=== PATIENT | female | born 1980 | race Caucasian/White ===

== ENCOUNTER 2017-01-15 18:39 | Emergency (ER) | payer OTHER ==
[~2017-01-15] VITALS: Ht 152.4 cm; Wt 79.4 kg
[~2017-01-15 18:39] MED LIST: ADVAIR 100-501 EACH INH; ADVAIR 250-501 EACH INH; ALBUTEROL SULF8.5 GM INH; ALBUTEROL2.5 MG/3 M INH; AMITRIPTYLINE H25 MG PO; AMITRIPTYLINE H50 MG PO; AZITHROMYCIN500 MG PO; BACLOFEN10 MG PO; BENADRYL25 MG PO; BUSPIRONE HCL5 MG PO; CYCLOBENZAPRINE10 MG PO; DOXYCYCLINE HY100 MG PO; FIORICET 50-321 EACH PO; FLUOXETINE HCL10 MG PO; GOLYTELY SOLU4000 ML PO; GUAIATUSSIN AC10 ML PO; HYDROCODON-ACE1 EA10 PO; IBUPROFEN200 M1 PO; IBUPROFEN800 MG PO; MACROBID 100 M100 MG PO; METFORMIN; MIRALAX17 GM PO; MONONESSA1 EACH PO; NAPROXEN500 MG PO; NEURONTIN300 MG PO; NORCO 5-325 TA1 EACH PO; NORTREL1 EAC1 PO; OMEPRAZOLE40 MG PO; ONDANSETRON ODT8 MG PO; ORTHO TRI-CYCL1 EACH PO; PERCOCET 5-3251 EACH PO; POLYETHYLENE G255 GM PO; PREDNISONE20 MG PO; PRENATAL CAPLE1 EACH PO; PRILOSEC20 MG PO; PROVENTIL HFA6.7 GM INH; PROZAC PO; PROZAC20 MG PO; PROZAC40 MG PO; SUDAFED 12 HOU120 MG PO; SUDAFED30 MG PO; SUDOGEST60 MG PO; TRAMADOL HCL50 MG PO; TRAZODONE HCL50 MG PO; TYLENOL EXTRA500 MG PO; VENTOLIN HFA18 GM INH; XANAX0.5 MG PO; ZIPSOR25 MG
--- OUTSIDE RECORDS SUMMARY | 2017-01-15 19:06 | XMS ---
Demographics + + + | Address | [address] | | [address] | | | [place] [address] | + + + | Preferred Language | Unknown | + + + | Marital Status | Unknown | + + + | Mormon Affiliation | Unknown | + + + | Race | Unknown | + + + | Ethnic Group | Unknown | + + + Author + + + | Author | [facility] | + + + | Organization | [facility] | + + + | Address | [address] | | | [place] [address] | + + + | Phone | | + + + Care Team Providers + + + + | Care Reproduction Artist Name | Role | Phone | + + + + Unavailable | Unavailable | + + + + PROBLEMS +---------+ + + +--------+ + + | Type | Condition | ICD9-CM | [id number] | Onset | Condition | SNOMED | | | | Code | Code | Dates | Status | Code | +---------+ + + +--------+ + + | Problem | Anxiety | | F41.9 | | Active | 04688178 | +---------+ + + +--------+ + + | Problem | Upper | R10.10 | | | Active | 76968127 | | | abdominal | | | | | | | | pain | | | | | | +---------+ + + +--------+ + + | Problem | Nausea & | | R11.2 | | Active | 14955035 | | | vomiting | | | | | | +---------+ + + +--------+ + + | Problem | Abdominal | | R10.9 | | Active | 86670383 | | | pain | | | | | | +---------+ + + +--------+ + + | Problem | Anxiety | F41.8 | | | Active | 780466412 | | | associated | | | | | | | | with | | | | | | | | depression | | | | | | +---------+ + + +--------+ + + | Problem | Elevated | D72.829 | | | Active | 254051622 | | | white | | | | | | | | blood cell | | | | | | | | count | | | | | | +---------+ + + +--------+ + + | Problem | Frequent | R51 | | | Active | 72340029 | | | headaches | | | | | | +---------+ + + +--------+ + + | Problem | Spine | M54.2 | | | Active | 41878638 | | | pain, | | | | | | | | cervical | | | | | | +---------+ + + +--------+ + + | Problem | Elevated | | R79.82 | | Active | 137927789 | | | C-reactive | | | | | | | | protein | | | | | | | | (CRP) | | | | | | +---------+ + + +--------+ + + | Problem | Elevated | | R70.0 | | Active | 330361681 | | | erythrocyt | | | | | | | | e | | | | | | | | sedimentat | | | | | | | | ion rate | | | | | | +---------+ + + +--------+ + + | Problem | Left | M79.622 | | | Active | 86082152 | | | axillary | | | | | | | | pain | | | | | | +---------+ + + +--------+ + + | Problem | Breast | N64.4 | | | Active | 41075017 | | | pain, left | | | | | | +---------+ + + +--------+ + + | Problem | Insomnia | | G47.00 | | Active | 053476846 | +---------+ + + +--------+ + + | Problem | Lumbar | | M54.5 | | Active | 197229711 | | | pain | | | | | | +---------+ + + +--------+ + + | Problem | Scoliosis | M41.9 | | | Active | 991975134 | +---------+ + + +--------+ + + | Problem | GERD | | K21.9 | | Active | 951875062 | | | (gastroeso | | | | | | | | phageal | | | | | | | | reflux | | | | | | | | disease) | | | | | | +---------+ + + +--------+ + + | Problem | Hypotensio | | I95.9 | | Active | 97255996 | | | n | | | | | | +---------+ + + +--------+ + + | Problem | Generalize | R52 | | | Active | 74030257 | | | d pain | | | | | | +---------+ + + +--------+ + + | Problem | Radiculopa | M54.16 | | | Active | 861597057 | | | thy of | | | | | | | | lumbar | | | | | | | | region | | | | | | +---------+ + + +--------+ + + | Problem | Dorsalgia, | | M54.9 | | Active | 859537907 | | | | | | | | | | | unspecifie | | | | | | | | d | | | | | | +---------+ + + +--------+ + + | Problem | Fall with | W19.XXXA | | | Active | 4118777 | | | injury | | | | | | +---------+ + + +--------+ + + | Problem | Muscle | M62.89 | | | Active | 20021316 | | | hypertonia | | | | | | +---------+ + + +--------+ + + ALLERGIES Unknown Allergies SOCIAL HISTORY No smoking Hx information available PLAN OF CARE VITAL SIGNS MEDICATIONS Unknown Medications RESULTS No Results PROCEDURES No Known procedures IMMUNIZATIONS No Known Immunizations"
--- OUTSIDE RECORDS SUMMARY | 2017-01-15 19:06 | XMS ---
Demographics + + + | Address | [address] | | | [address] | | | [place] [address] | + + + | Preferred Language | Unknown | + + + | Marital Status | Unknown | + + + | Pentecostal Affiliation | Unknown | + + + | Race | Unknown | + + + | Ethnic Group | Unknown | + + + Author + + + | Author | [facility] | + + + | Organization | [facility] | + + + | Address | [address] | | | [place] [address] | + + + | Phone | | + + + Care Team Providers + + + + | Care Watch Engine Operator Name | Role | Phone | + + + + Unavailable | Unavailable | + + + + PROBLEMS +---------+ + + +--------+ + + | Type | Condition | ICD9-CM | [id number] | Onset | Condition | SNOMED | | | | Code | Code | Dates | Status | Code | +---------+ + + +--------+ + + | Problem | Anxiety | | F41.9 | | Active | 12453072 | +---------+ + + +--------+ + + | Problem | Upper | R10.10 | | | Active | 25770594 | | | abdominal | | | | | | | | pain | | | | | | +---------+ + + +--------+ + + | Problem | Nausea & | | R11.2 | | Active | 94563299 | | | vomiting | | | | | | +---------+ + + +--------+ + + | Problem | Abdominal | | R10.9 | | Active | 97896684 | | | pain | | | | | | +---------+ + + +--------+ + + | Problem | Anxiety | F41.8 | | | Active | 297545228 | | | associated | | | | | | | | with | | | | | | | | depression | | | | | | +---------+ + + +--------+ + + | Problem | Elevated | D72.829 | | | Active | 934262424 | | | white | | | | | | | | blood cell | | | | | | | | count | | | | | | +---------+ + + +--------+ + + | Problem | Frequent | R51 | | | Active | 81083796 | | | headaches | | | | | | +---------+ + + +--------+ + + | Problem | Spine | M54.2 | | | Active | 65953209 | | | pain, | | | | | | | | cervical | | | | | | +---------+ + + +--------+ + + | Problem | Elevated | | R79.82 | | Active | 122115654 | | | C-reactive | | | | | | | | protein | | | | | | | | (CRP) | | | | | | +---------+ + + +--------+ + + | Problem | Elevated | | R70.0 | | Active | 962217329 | | | erythrocyt | | | | | | | | e | | | | | | | | sedimentat | | | | | | | | ion rate | | | | | | +---------+ + + +--------+ + + | Problem | Left | M79.622 | | | Active | 16644553 | | | axillary | | | | | | | | pain | | | | | | +---------+ + + +--------+ + + | Problem | Breast | N64.4 | | | Active | 34142968 | | | pain, left | | | | | | +---------+ + + +--------+ + + | Problem | Insomnia | | G47.00 | | Active | 547771941 | +---------+ + + +--------+ + + | Problem | Lumbar | | M54.5 | | Active | 353624529 | | | pain | | | | | | +---------+ + + +--------+ + + | Problem | Scoliosis | M41.9 | | | Active | 146523518 | +---------+ + + +--------+ + + | Problem | GERD | | K21.9 | | Active | 955478493 | | | (gastroeso | | | | | | | | phageal | | | | | | | | reflux | | | | | | | | disease) | | | | | | +---------+ + + +--------+ + + | Problem | Hypotensio | | I95.9 | | Active | 74847586 | | | n | | | | | | +---------+ + + +--------+ + + | Problem | Generalize | R52 | | | Active | 39969078 | | | d pain | | | | | | +---------+ + + +--------+ + + | Problem | Radiculopa | M54.16 | | | Active | 778325929 | | | thy of | | | | | | | | lumbar | | | | | | | | region | | | | | | +---------+ + + +--------+ + + | Problem | Dorsalgia, | | M54.9 | | Active | 665613573 | | | | | | | | | | | unspecifie | | | | | | | | d | | | | | | +---------+ + + +--------+ + + | Problem | Fall with | W19.XXXA | | | Active | 8213194 | | | injury | | | | | | +---------+ + + +--------+ + + | Problem | Muscle | M62.89 | | | Active | 19742101 | | | hypertonia | | | | | | +---------+ + + +--------+ + + ALLERGIES + + + + +--------+ | Substance | Reaction | Event Type | Date | Status | + + + + +--------+ | contrast dye | hives | Drug Allergy | Dec, | Active | + + + + +--------+ | Sulfa | nausea | Drug Allergy | Dec, | Active | + + + + +--------+ | Vistaril | nausea | Drug Allergy | Dec, | Active | + + + + +--------+ SOCIAL HISTORY No smoking Hx information available PLAN OF CARE + +---------+ | Activity | Details | + +---------+ +---+ | | +---+ + + + | Follow Up | 2 - 3 Days, prn Reason:null | + + + | Pending Test | CBC | + + + VITAL SIGNS + + + + | Height | 61 in | 2016-12-30 | + + + + | Weight | 174.2 lbs | 2016-12-30 | + + + + | BMI | 32.91 kg/m2 | 2016-12-30 | + + + + | Temperature | 97.2 degrees Fahrenheit | 2016-12-30 | + + + + | Heart Rate | 81 /min | 2016-12-30 | + + + + | Blood pressure systolic | 108 mm Hg | 2016-12-30 | + + + + | Blood pressure diastolic | 59 mm Hg | 2016-12-30 | + + + + MEDICATIONS + + + + + + + +--------+ | Medicati | Instruct | Dosage | Frequenc | Start | End Date | Duration | Status | | on | ions | | y | Date | | | | + + + + + + + +--------+ | Gabapent | | | | | | | Active | | in 300 | | | | | | | | | MG | | | | | | | | + + + + + + + +--------+ | Zofran | Orally | 1 tablet | 8h | | | 15 | Active | | ODT 4 mg | every 8 | on the | | | | day(s) | | | | hrs | tongue | | | | | | | | | and | | | | | | | | | allow to | | | | | | | | | | | | | | | | | | dissolve | | | | | | + + + + + + + +--------+ | Prilosec | Orally | 1 | 24h | Jun, | | | Active | | 40 MG | Once a | capsule | | 2013 | | | | | | day | | | | | | | + + + + + + + +--------+ | Toradol | orally | 1 tab(s) | | | | 5 day(s) | Active | | 10 mg | tid prn | | | | | | | + + + + + + + +--------+ | Albutero | Inhalati | 1 ampule | 8h | | | 30 | Active | | l | on Three | | | | | day(s) | | | 3mg/0.5m | times a | | | | | | | | g in 3ml | day | | | | | | | + + + + + + + +--------+ | Prozac | Orally | 1 | 24h | 06 Jun, | | 30 | Active | | 80 mg | Once a | capsule | | 2013 | | day(s) | | | | day | in the | | | | | | | | | morning | | | | | | + + + + + + + +--------+ | Ventolin | Inhalati | 2 puffs | 4h | 15 Jun, | | 30 days | Active | | HFA 108 | on every | as | | 2013 | | | | | (90 | 4 hrs | needed | | | | | | | Base) | | | | | | | | | MCG/ACT | | | | | | | | + + + + + + + +--------+ | Macrobid | Orally | 1 tab(s) | 12h | | | 5 day(s) | Active | | 100 mg | every 12 | | | | | | | | | hrs | | | | | | | + + + + + + + +--------+ RESULTS No Results PROCEDURES + + + + + | Procedure | Date Ordered | Related Diagnosis | Body Site | + + + + + | Est Level IV | December 30, 2016 | | | | Extended | | | | + + + + + IMMUNIZATIONS No Known Immunizations"
[2017-01-15] MEDS ORDERED: PREDNISONE20 MG PO (19:55)
[2017-01-15] MEDS ORDERED: CETIRIZINE HCL10 MG PO (19:55)
== END 2017-01-15 20:09 | disposition home or self-care (01) ==
LOC: ED 18:39
DX: J45.901 Unspecified asthma with (acute) exacerbation (principal); K21.9 Gastro-esophageal reflux disease without esophagitis; F17.200 Nicotine dependence, unspecified, uncomplicated; Z90.49 Acquired absence of other specified parts of digestive tract; Z98.51 Tubal ligation status; Z88.2 Allergy status to sulfonamides; Z88.8 Allergy status to other drugs, medicaments and biological substances; Z79.01 Long term (current) use of anticoagulants
CPT/HCPCS: 94640; 99283; J7512

== ENCOUNTER 2017-01-17 10:59 | Inpatient (IN) | payer OTHER ==
[~2017-01-17] VITALS: Ht 152.4 cm; Wt 78.7 kg
[~2017-01-17 10:59] MED LIST changes: +CETIRIZINE HCL10 MG PO
[2017-01-17] MEDS ORDERED: ALBUTEROL2.5 MG/3 M INH (16:54)
[2017-01-17] MEDS ORDERED: ONDANSETRON ODT8 MG SL (17:16)
[2017-01-19] MEDS ORDERED: CEFUROXIME500 MG PO (12:09)
[2017-01-19] MEDS ORDERED: PREDNISONE20 MG PO (12:14)
[2017-01-19] MEDS ORDERED: NICORETTE4 M2 BUCCAL (12:14)
== END 2017-01-19 13:25 | disposition home or self-care (01) | DRG 193 ==
LOC: ED 10:59 → MS 12:57
PROVIDERS: ADMIT Internal Medicine
DX: J13 Pneumonia due to Streptococcus pneumoniae (principal); J96.01 Acute respiratory failure with hypoxia; J45.41 Moderate persistent asthma with (acute) exacerbation; F17.210 Nicotine dependence, cigarettes, uncomplicated; E87.6 Hypokalemia; F41.8 Other specified anxiety disorders; G89.4 Chronic pain syndrome; Z79.899 Other long term (current) drug therapy; Z88.2 Allergy status to sulfonamides; Z88.8 Allergy status to other drugs, medicaments and biological substances; Z91.041 Radiographic dye allergy status
CPT/HCPCS: 36415; 71020; 80053; 83735; 85025; 87070; 87205; 94640; 94668; 94760; 94761; 96361; 96374; 96375; 99285; 99406; J0456; J0696; J1650; J2920; J2930; J3475; J7120

== ENCOUNTER 2017-07-29 20:41 | Emergency (ER) | payer OTHER ==
[~2017-07-29] VITALS: Ht 152.4 cm; Wt 78.7 kg
--- OUTSIDE RECORDS SUMMARY | ~2017-07-29 | XMS ---
Demographics + + + | Address | [facility] [address] | | | [address] | | | [place] [address] | + + + | Preferred Language | Unknown | + + + | Marital Status | Unknown | + + + | Episcopal Affiliation | Unknown | + + + | Race | Unknown | + + + | Ethnic Group | Unknown | + + + Author + + + | Author | [facility] | + + + | Organization | [facility] | + + + | Address | [address] | | | [place] [address] | + + + | Phone | | + + + Care Team Providers + + + + | Care Machine Ii Coremaker Name | Role | Phone | + + + + Unavailable | Unavailable | + + + + PROBLEMS +---------+ + + +--------+ + + | Type | Condition | ICD9-CM | [id number] | Onset | Condition | SNOMED | | | | Code | Code | Dates | Status | Code | +---------+ + + +--------+ + + | Problem | Anxiety | | F41.9 | | Active | 48701275 | +---------+ + + +--------+ + + | Problem | Upper | R10.10 | | | Active | 73328859 | | | abdominal | | | | | | | | pain | | | | | | +---------+ + + +--------+ + + | Problem | Nausea & | | R11.2 | | Active | 08483087 | | | vomiting | | | | | | +---------+ + + +--------+ + + | Problem | Abdominal | | R10.9 | | Active | 38044761 | | | pain | | | | | | +---------+ + + +--------+ + + | Problem | Anxiety | F41.8 | | | Active | 419109943 | | | associated | | | | | | | | with | | | | | | | | depression | | | | | | +---------+ + + +--------+ + + | Problem | Elevated | D72.829 | | | Active | 871137510 | | | white | | | | | | | | blood cell | | | | | | | | count | | | | | | +---------+ + + +--------+ + + | Problem | Frequent | R51 | | | Active | 31253698 | | | headaches | | | | | | +---------+ + + +--------+ + + | Problem | Spine | M54.2 | | | Active | 51895586 | | | pain, | | | | | | | | cervical | | | | | | +---------+ + + +--------+ + + | Problem | Elevated | | R79.82 | | Active | 545627891 | | | C-reactive | | | | | | | | protein | | | | | | | | (CRP) | | | | | | +---------+ + + +--------+ + + | Problem | Elevated | | R70.0 | | Active | 684913147 | | | erythrocyt | | | | | | | | e | | | | | | | | sedimentat | | | | | | | | ion rate | | | | | | +---------+ + + +--------+ + + | Problem | Left | M79.622 | | | Active | 56980881 | | | axillary | | | | | | | | pain | | | | | | +---------+ + + +--------+ + + | Problem | Breast | N64.4 | | | Active | 29439920 | | | pain, left | | | | | | +---------+ + + +--------+ + + | Problem | Insomnia | | G47.00 | | Active | 779387816 | +---------+ + + +--------+ + + | Problem | Lumbar | | M54.5 | | Active | 992739631 | | | pain | | | | | | +---------+ + + +--------+ + + | Problem | Scoliosis | M41.9 | | | Active | 828598837 | +---------+ + + +--------+ + + | Problem | GERD | | K21.9 | | Active | 228705174 | | | (gastroeso | | | | | | | | phageal | | | | | | | | reflux | | | | | | | | disease) | | | | | | +---------+ + + +--------+ + + | Problem | Hypotensio | | I95.9 | | Active | 47966331 | | | n | | | | | | +---------+ + + +--------+ + + | Problem | Generalize | R52 | | | Active | 00910328 | | | d pain | | | | | | +---------+ + + +--------+ + + | Problem | Radiculopa | M54.16 | | | Active | 096274435 | | | thy of | | | | | | | | lumbar | | | | | | | | region | | | | | | +---------+ + + +--------+ + + | Problem | Dorsalgia, | | M54.9 | | Active | 227544510 | | | | | | | | | | | unspecifie | | | | | | | | d | | | | | | +---------+ + + +--------+ + + | Problem | Fall with | W19.XXXA | | | Active | 7349814 | | | injury | | | | | | +---------+ + + +--------+ + + | Problem | Muscle | M62.89 | | | Active | 20431590 | | | hypertonia | | | | | | +---------+ + + +--------+ + + ALLERGIES Unknown Allergies SOCIAL HISTORY No smoking Hx information available PLAN OF CARE VITAL SIGNS MEDICATIONS Unknown Medications RESULTS No Results PROCEDURES No Known procedures IMMUNIZATIONS No Known Immunizations"
--- OUTSIDE RECORDS SUMMARY | ~2017-07-29 | XMS | Clinical Summary ---
Demographics + + + | Address | [address] | | | [place] [address] | + + + | Home Phone | | + + + | Preferred Language | Unknown | + + + | Marital Status | | + + + | Hinduism Affiliation | Unknown | + + + [...] | Unavailable | + + + Support +------+ + + + + | Name | Relationship | Address | Phone | +------+ + + + + ECON | [address] | | [place] [address] | +------+ + + + + Care Team Providers + +------+ + | Care Group Work Program Director Name | Role | Phone | + +------+ + | No Pcp Per Patient | PP | Unavailable | + +------+ + Source Comments [facility] is fully live on both [facility] Ambulatory and [facility] InPatient.[facility] Allergies No Known Allergies Current Medications Not [...]
--- OUTSIDE RECORDS SUMMARY | ~2017-07-29 | XMS | Clinical Summary ---
Demographics + + + | Address | [address] | | | [place] [address] | + + + | Home Phone | | + + + | Preferred Language | Unknown | + + + | Marital Status | | + + + | Hoahaoism Affiliation | Unknown | + + + [...] | [address] | | [place] [address] | +------+ + + + + Care Team Providers + +------+ + | Care Mobile Service Rv Technician Name | Role | Phone | + +------+ + | No Pcp Per Patient | PP | Unavailable | + +------+ + Source Comments [facility] is fully live on both [facility] Ambulatory and [facility] InPatient.[facility] Allergies No Known Allergies Current Medications Not [...]
--- OUTSIDE RECORDS SUMMARY | ~2017-07-29 | XMS ---
Demographics + + + | Address | [facility] | | | [address] | | | [place] [address] | + + + | Preferred Language | Unknown | + + + | Marital Status | Unknown | + + + | Worship Affiliation | Unknown | + + + | Race | Unknown | + + + | Ethnic Group | Unknown | + + + Author + + + | Author | [facility] | + + + | Organization | [facility] | + + + | Address | [address] | | | [place] [address] | + + + | Phone | | + + + Care Team Providers + + + + | Care Workers Compensation Claims Specialist Name | Role | Phone | + + + + Unavailable | Unavailable | + + + + PROBLEMS +---------+ + + +--------+ + + | Type | Condition | ICD9-CM | [id number] | Onset | Condition | SNOMED | | | | Code | Code | Dates | Status | Code | +---------+ + + +--------+ + + | Problem | Anxiety | | F41.9 | | Active | 29820202 | +---------+ + + +--------+ + + | Problem | Upper | R10.10 | | | Active | 00629122 | | | abdominal | | | | | | | | pain | | | | | | +---------+ + + +--------+ + + | Problem | Nausea & | | R11.2 | | Active | 33496449 | | | vomiting | | | | | | +---------+ + + +--------+ + + | Problem | Abdominal | | R10.9 | | Active | 07350412 | | | pain | | | | | | +---------+ + + +--------+ + + | Problem | Anxiety | F41.8 | | | Active | 590613738 | | | associated | | | | | | | | with | | | | | | | | depression | | | | | | +---------+ + + +--------+ + + | Problem | Elevated | D72.829 | | | Active | 132710205 | | | white | | | | | | | | blood cell | | | | | | | | count | | | | | | +---------+ + + +--------+ + + | Problem | Frequent | R51 | | | Active | 52542537 | | | headaches | | | | | | +---------+ + + +--------+ + + | Problem | Spine | M54.2 | | | Active | 18422273 | | | pain, | | | | | | | | cervical | | | | | | +---------+ + + +--------+ + + | Problem | Elevated | | R79.82 | | Active | 061372525 | | | C-reactive | | | | | | | | protein | | | | | | | | (CRP) | | | | | | +---------+ + + +--------+ + + | Problem | Elevated | | R70.0 | | Active | 798955998 | | | erythrocyt | | | | | | | | e | | | | | | | | sedimentat | | | | | | | | ion rate | | | | | | +---------+ + + +--------+ + + | Problem | Left | M79.622 | | | Active | 44155903 | | | axillary | | | | | | | | pain | | | | | | +---------+ + + +--------+ + + | Problem | Breast | N64.4 | | | Active | 68092631 | | | pain, left | | | | | | +---------+ + + +--------+ + + | Problem | Insomnia | | G47.00 | | Active | 180954035 | +---------+ + + +--------+ + + | Problem | Lumbar | | M54.5 | | Active | 157550080 | | | pain | | | | | | +---------+ + + +--------+ + + | Problem | Scoliosis | M41.9 | | | Active | 373794791 | +---------+ + + +--------+ + + | Problem | GERD | | K21.9 | | Active | 455642258 | | | (gastroeso | | | | | | | | phageal | | | | | | | | reflux | | | | | | | | disease) | | | | | | +---------+ + + +--------+ + + | Problem | Hypotensio | | I95.9 | | Active | 49590996 | | | n | | | | | | +---------+ + + +--------+ + + | Problem | Generalize | R52 | | | Active | 77219921 | | | d pain | | | | | | +---------+ + + +--------+ + + | Problem | Radiculopa | M54.16 | | | Active | 860760419 | | | thy of | | | | | | | | lumbar | | | | | | | | region | | | | | | +---------+ + + +--------+ + + | Problem | Dorsalgia, | | M54.9 | | Active | 279224850 | | | | | | | | | | | unspecifie | | | | | | | | d | | | | | | +---------+ + + +--------+ + + | Problem | Fall with | W19.XXXA | | | Active | 7080600 | | | injury | | | | | | +---------+ + + +--------+ + + | Problem | Muscle | M62.89 | | | Active | 80819649 | | | hypertonia | | | | | | +---------+ + + +--------+ + + ALLERGIES Unknown Allergies SOCIAL HISTORY No smoking Hx information available PLAN OF CARE VITAL SIGNS MEDICATIONS Unknown Medications RESULTS No Results PROCEDURES No Known procedures IMMUNIZATIONS No Known Immunizations"
--- OUTSIDE RECORDS SUMMARY | ~2017-07-29 | XMS ---
Demographics + + + | Address | [facility] [address] | | | [address] | | | [place] [address] | + + + | Preferred Language | Unknown | + + + | Marital Status | Unknown | + + + | Jewish Affiliation | Unknown | + + + | Race | Unknown | + + + | Ethnic Group | Unknown | + + + Author + + + | Author | [facility] | + + + | Organization | [facility] | + + + | Address | [address] | | | [place] [address] | + + + | Phone | | + + + Care Team Providers + + + + | Care Phlebotomy Services Technician Name | Role | Phone | + + + + Unavailable | Unavailable | + + + + PROBLEMS +---------+ + + +--------+ + + | Type | Condition | ICD9-CM | [id number] | Onset | Condition | SNOMED | | | | Code | Code | Dates | Status | Code | +---------+ + + +--------+ + + | Problem | Anxiety | | F41.9 | | Active | 02615312 | +---------+ + + +--------+ + + | Problem | Upper | R10.10 | | | Active | 44273561 | | | abdominal | | | | | | | | pain | | | | | | +---------+ + + +--------+ + + | Problem | Nausea & | | R11.2 | | Active | 69556983 | | | vomiting | | | | | | +---------+ + + +--------+ + + | Problem | Abdominal | | R10.9 | | Active | 82771316 | | | pain | | | | | | +---------+ + + +--------+ + + | Problem | Anxiety | F41.8 | | | Active | 098050922 | | | associated | | | | | | | | with | | | | | | | | depression | | | | | | +---------+ + + +--------+ + + | Problem | Elevated | D72.829 | | | Active | 043744969 | | | white | | | | | | | | blood cell | | | | | | | | count | | | | | | +---------+ + + +--------+ + + | Problem | Frequent | R51 | | | Active | 29087940 | | | headaches | | | | | | +---------+ + + +--------+ + + | Problem | Spine | M54.2 | | | Active | 45431672 | | | pain, | | | | | | | | cervical | | | | | | +---------+ + + +--------+ + + | Problem | Elevated | | R79.82 | | Active | 020154637 | | | C-reactive | | | | | | | | protein | | | | | | | | (CRP) | | | | | | +---------+ + + +--------+ + + | Problem | Elevated | | R70.0 | | Active | 119579692 | | | erythrocyt | | | | | | | | e | | | | | | | | sedimentat | | | | | | | | ion rate | | | | | | +---------+ + + +--------+ + + | Problem | Left | M79.622 | | | Active | 84473603 | | | axillary | | | | | | | | pain | | | | | | +---------+ + + +--------+ + + | Problem | Breast | N64.4 | | | Active | 43682098 | | | pain, left | | | | | | +---------+ + + +--------+ + + | Problem | Insomnia | | G47.00 | | Active | 023781044 | +---------+ + + +--------+ + + | Problem | Lumbar | | M54.5 | | Active | 439544306 | | | pain | | | | | | +---------+ + + +--------+ + + | Problem | Scoliosis | M41.9 | | | Active | 802634777 | +---------+ + + +--------+ + + | Problem | GERD | | K21.9 | | Active | 044241108 | | | (gastroeso | | | | | | | | phageal | | | | | | | | reflux | | | | | | | | disease) | | | | | | +---------+ + + +--------+ + + | Problem | Hypotensio | | I95.9 | | Active | 34346685 | | | n | | | | | | +---------+ + + +--------+ + + | Problem | Generalize | R52 | | | Active | 56208545 | | | d pain | | | | | | +---------+ + + +--------+ + + | Problem | Radiculopa | M54.16 | | | Active | 074828471 | | | thy of | | | | | | | | lumbar | | | | | | | | region | | | | | | +---------+ + + +--------+ + + | Problem | Dorsalgia, | | M54.9 | | Active | 915926344 | | | | | | | | | | | unspecifie | | | | | | | | d | | | | | | +---------+ + + +--------+ + + | Problem | Fall with | W19.XXXA | | | Active | [id number] | | | injury | | | | | | +---------+ + + +--------+ + + | Problem | Muscle | M62.89 | | | Active | [id number] | | | hypertonia | | | | | | +---------+ + + +--------+ + + ALLERGIES Unknown Allergies SOCIAL HISTORY No smoking Hx information available PLAN OF CARE VITAL SIGNS MEDICATIONS Unknown Medications RESULTS No Results PROCEDURES No Known procedures IMMUNIZATIONS No Known Immunizations"
[~2017-07-29 20:41] MED LIST changes: +CEFUROXIME500 MG PO; +NICORETTE4 M2 BUCCAL; +ONDANSETRON ODT8 MG SL
[2017-07-29] MEDS ORDERED: PSEUDOEPHEDRINE30 MG PO (20:54)
[2017-07-29] MEDS ORDERED: BENZONATATE100 MG PO (20:54)
[2017-09-10] MEDS ORDERED: BUSPIRONE HCL10 MG PO (19:58)
[2017-09-10] MEDS ORDERED: LIPITOR10 MG PO (19:58)
[2017-09-10] MEDS ORDERED: OMEPRAZOLE20 MG PO (19:58)
[2017-09-10] MEDS ORDERED: ZOFRAN ODT4 MG PO (19:59)
[2017-09-10] MEDS ORDERED: AMOXICILLIN500 MG PO (20:20)
[2017-09-10] MEDS ORDERED: IBUPROFEN600 MG PO (20:20)
== END 2017-07-29 22:41 | disposition home or self-care (01) ==
LOC: ED 20:41
DX: R51 Headache (principal); J45.909 Unspecified asthma, uncomplicated; F32.9 Major depressive disorder, single episode, unspecified; F17.200 Nicotine dependence, unspecified, uncomplicated; Z91.041 Radiographic dye allergy status; Z88.2 Allergy status to sulfonamides; Z88.8 Allergy status to other drugs, medicaments and biological substances; Z79.899 Other long term (current) drug therapy
CPT/HCPCS: 96361; 96374; 96375; 99282; J1200; J1885; J2765; J7030

== ENCOUNTER → 2017-09-10 | Emergency (ER) | payer OTHER ==
[~2017-09-10] VITALS: Ht 152.4 cm; Wt 78.7 kg
[~2017-09-10] MED LIST changes: +AMOXICILLIN500 MG PO; +BENZONATATE100 MG PO; +BUSPIRONE HCL10 MG PO; +IBUPROFEN600 MG PO; +LIPITOR10 MG PO; +OMEPRAZOLE20 MG PO; +PSEUDOEPHEDRINE30 MG PO; +ZOFRAN ODT4 MG PO
--- OUTSIDE RECORDS SUMMARY | ~2017-09-10 | XMS | Clinical Summary ---
Demographics + + + | Address | [address] | | | [place] [address] | + + + | Home Phone | | + + + | Preferred Language | Unknown | + + + | Marital Status | | + + + | Yarsani Affiliation | Unknown | + + + | Race | White | + + + | Ethnic Group | Not or | + + + Author + + + | Author | NON REVENUE LOCATIONS | + + + | Organization | NON REVENUE LOCATIONS | + + + | Address | Unknown | + + + | Phone | Unavailable | + + + Support + + + + + | Name | Relationship | Address | Phone | + + + + + | NEGRO MARTINES | ECON | [address] | | | | | [place] [address] | | + + + + + Care Team Providers + +------+ + | Care Precision Thread Grinder Operator Name | Role | Phone | + +------+ + | No Pcp Per Patient | PP | Unavailable | + +------+ + Source Comments KAHLIL is fully live on both [facility] Ambulatory and [facility] InPatient.[facility] Allergies No Known Allergies Current Medications Not on file Active Problems [...] | + + + Plan of Treatment + + + + + | Health Maintenance | Due Date | Last Done | Comments | + + + + + | INFLUENZA VACCINE | | | | | (FLU SHOT) | 7 | | | + + + + + Results Not on filefrom Last 3 Months"
--- OUTSIDE RECORDS SUMMARY | ~2017-09-10 | XMS | Clinical Summary ---
Demographics + + + | Address | [address] | | | [place] [address] | + + + | Home Phone | | + + + | Preferred Language | Unknown | + + + | Marital Status | | + + + | Christian Affiliation | Unknown | + + + [...] [address] | | | | | [place] [address] | | + + + + + Care Team Providers + +------+ + | Care Material Control Supervisor Name | Role | Phone | + +------+ + | No Pcp Per Patient | PP | Unavailable | + +------+ + Source Comments KAHLIL is fully live on both [facility] Amb[facility] and [facility] InPatient.[facility] Allergies No Known Allergies Current Medications Not [...]
== END ==
LOC: ED 19:41
DX: J02.9 Acute pharyngitis, unspecified (principal); J45.909 Unspecified asthma, uncomplicated; F41.9 Anxiety disorder, unspecified; K21.9 Gastro-esophageal reflux disease without esophagitis; F17.200 Nicotine dependence, unspecified, uncomplicated; Z91.041 Radiographic dye allergy status; Z88.2 Allergy status to sulfonamides; Z88.8 Allergy status to other drugs, medicaments and biological substances; Z79.899 Other long term (current) drug therapy
CPT/HCPCS: 87880; 99283

== ENCOUNTER 2019-07-11 14:37 | Emergency (ER) | payer OTHER ==
[~2019-07-11] VITALS: Ht 152.4 cm; Wt 70.8 kg
--- OUTSIDE RECORDS SUMMARY | ~2019-07-11 | XMS | Encounter Summary ---
Demographics + + + | Address | [address] | | | [place] [address] | + + + | Home Phone | | + + + | Preferred Language | Unknown | + + + | Marital Status | | + + + | Jew Affiliation | Unknown | + + + | Race | White | + + + | Ethnic Group | Not or | + + + Author + + + | Author | [facility] | + + + | Organization | [facility] | + + + | Address | Unknown | + + + | Phone | Unavailable | + + + Support + + + + + | Name | Relationship | Address | Phone | + + + + + | Riley Chavez | ECON | [address] | | | | | [place] [address] | | + + + + + Care Team Providers + +------+ + | Care Keying Machine Operator Name | Role | Phone | + +------+ + PCP | Unavailable | + +------+ + Encounter Details +--------+ + + + + | Date | Type | Department | Care Team | Description | +--------+ + + + + | 08/31/ | Transcribed | UNKNOWN DEPARTMENT | Dictation, Other | Transcribed | | 1994 | | [address] | | | | | | [address] | | | | | | [place], [place] | | | | | | [address] | | | +--------+ + + + + Social History + +-------+ +--------+------+ | Tobacco Use | Types | Packs/Day | Years | Date | | | | | Used | | + +-------+ +--------+------+ | Never Assessed | | | | | + +-------+ +--------+------+ + + + | Sex Assigned at | Date Recorded | | | | + + + | Not on file | | + + + + + + + | Job Start Date | Occupation | Industry | + + + + | Not on file | Not on file | Not on file | + + + + + + + + | Travel History | Travel Start | Travel End | + + + + + + | No recent travel history available. | + + documented as of this encounter Progress Notes Interface, Net Lead Architect In 10/18/2006 1:01 AM PDT [facility] [address] [address] August 31, 1994 Varun LAWSON MD [address] [place] [address] RE:Graham Adams MR#:[id number] Lawson: Graham Adams was seen on referral today for her left thoracic idiopathic scoliosis. Her curvature has increased from 40 degrees, based on the x-rays from June 04, 1994, to 46 degrees, based on the radiographs that I took here today. Left thoracic curvature is unusual and has an approximate 35 percent chance of having an interspinal abnormality such as a syringomyelia or Arnold Chiari malformation. A magnetic resonance imaging scan has been requested. Her neurologic examination is normal. I will let you know what the MRI scan shows and tell you what the recommendations are regarding bracing and surgical treatments on her. At the present time, I have recommended surgical treatment although I think that they more likely favor brace treatment. Sincerely, Arvin Hebert M.D. Gifted Program Teacher, Orthopedics SAHARA/ September 01, 1994 nterface, Net Lead Architect In 10/18/2006 1:01 AM PDT [facility] [address], [place], [place] [address] August 31, 1994 BEATRIZ ARRIAZA MD [facility] [address] [facility] [address] RE:Yolette Adams MR#:[id number] Dear Doctor Abeba: Graham Adams was seen on referral from Chanelle Bishop MD, in [place], [place], for evaluation of Graham Adams's left thoracic scoliosis. She is being seen for an MRI scan and the left thoracic curvature is very uncommon and has an approximate 35% chance of an intraspinal abnormality. Her curve is such now that a surgical treatment has been recommended, although bracing is an option. Grahma and her mother are discussing this and deciding how they want to proceed with it. I will keep you apprised of how her diagnostic studies and treatment progress. Sincerely, Arvin Hebert M.D. Gifted Program Teacher, Orthopedics VALERIK:abebe August 31, 1994 documented in this encounter Plan of Treatment Not on filedocumented as of this encounter Visit Diagnoses Not on filedocumented in this encounter"
--- OUTSIDE RECORDS SUMMARY | ~2019-07-11 | XMS | Encounter Summary ---
Demographics + + + | Address | [address] | | | [place] [address] | + + + | Home Phone | | + + + | Preferred Language | Unknown | + + + | Marital Status | | + + + | Shinto Affiliation | Unknown | + + + | Race | White | + + + | Ethnic Group | Not or | + + + Author + + + | Organization | Unknown | + + + | Address | Unknown | + + + | Phone | Unavailable | + + + Support + + + + + | Name | Relationship | Address | Phone | + + + + + | Riley Chavez | ECON | [address] | | | | | [place] [address] | | + + + + + Care Team Providers + +------+ + | Care Support Manager Name | Role | Phone | + +------+ + PCP | Unavailable | + +------+ + Encounter Details +--------+ + + + + | Date | Type | Department | Care Team | Description | +--------+ + + + + | 07/19/ | Results | | Other, Faculty | | | 1996 | Only | | [phone] | | +--------+ + + + + [...] + + documented as of this encounter Plan of Treatment Not on filedocumented as of this encounter Procedures + +--------+ + + + | Procedure Name | Priori | Date/Time | Associated Diagnosis | Comments | | | ty | | | | + +--------+ + + + | X-RAY SCOLI SPINE | Routin | 07/19/1995 | | Results for this | | ENTIRE 36 1 VIEW | e | 12:40 PM | | procedure are in the | | | | PST | | results section. | + +--------+ + + + documented in this encounter Results SCOLI SPINE ENTIRE 36 1 VIEW (07/19/1995 12:40 PM PST) + + + + + + | Component | Value | Ref Range | Performed | Pathologist | | | | | At | Signature | + + + + + + | SCOLI SPINE | Radiologist 1: TASHA MCKINNEY | | | | | ENTIRE 36 | W.Arelis-Radiologist 2: | | | | | 1 VIEW | [address], | | | | | | YOLETTE MUSA | | | | | | | | | | | | | | | | | | 07 18 27 63 | | | | | | ENTIRE SPINE AP AND | | | | | | LATERAL VIEWS: 07/19/95 | | | | | | AT 1240 HOURS | | | | | | Dictated: 07/20/95 | | | | | | COMPARISON: Comparison | | | | | | is made with similar | | | | | | views of March | | | | | | . FINDINGS: A | | | | | | single intact posterior | | | | | | gume is again identified | | | | | | withoutevidence of | | | | | | loosening. Lower | | | | | | thoracolumbar scoliosis | | | | | | is againidentified with | | | | | | the apex on the left at | | | | | | an angle of | | | | | | approximately 26degrees | | | | | | which is the same as | | | | | | measured on April 12 | | | | | | 1994. Normaldegree of | | | | | | thoracic kyphosis is | | | | | | seen. No other osseous | | | | | | abnormalitiesare | | | | | | appreciated. | | | | | | IMPRESSION: Unchanged | | | | | | thoracic and lumbar | | | | | | spine instrumentation | | | | | | with nosignificant | | | | | | change in scoliosis. | | | | | | END OF IMPRESSION: | | | | + + + + + + + + | Specimen | + + | | + + + + + | Narrative | Performed At | + + + | Ordered by EKTA MONTALVO M.D. | | + + + + +---------+ + + | Performing | Address | City/State/Zipcode | Phone Number | | Organization | | | | + +---------+ + + | [facility] OF | | | | | RADIOLOGY | | | | + +---------+ + + documented in this encounter Visit Diagnoses Not on filedocumented in this encounter"
--- OUTSIDE RECORDS SUMMARY | ~2019-07-11 | XMS | Encounter Summary ---
Demographics + + + | Address | [address] | | | [place] [address] | + + + | Home Phone | | + + + | Preferred Language | Unknown | + + + | Marital Status | | + + + | Church Affiliation | Unknown | + + + | Race | White | + + + | Ethnic Group | Not or | + + + Author + + + | Author | [facility] | + + + | Organization | [facility] | + + + | Address | Unknown | + + + | Phone | Unavailable | + + + Support + + + + + | Name | Relationship | Address | Phone | + + + + + | Riley Chavez | ECON | [address] | | | | | [place] [address] | | + + + + + Care Team Providers + +------+ + | Care General Production Laborer Name | Role | Phone | + +------+ + PCP | Unavailable | + +------+ + Encounter Details +--------+ + + + + | Date | Type | Department | Care Team | Description | +--------+ + + + + | 01/07/ | Results | Registration [id number] | | | | 1995 | Only | [address] | | | | | | [address] Mailcode: [id number] | | | | | | [place], [place] | | | | | | [address] | | | | | | [phone] | | | +--------+ + + + [...] | + +--------+ + + + | CBC TESTS 2 | Routin | 01/12/1995 | | Results for this | | | e | 6:10 AM | | procedure are in the | | | | PDT | | results section. | + +--------+ + + + | CBC TESTS 2 | Routin | 01/11/1995 | | Results for this | | | e | 6:00 AM | | procedure are in the | | | | PDT | | results section. | + +--------+ + + + | TRANSFUSION MEDICINE | Routin | 01/07/1995 | | Results for this | | TESTS | e | 3:33 PM | | procedure are in the | | | | PDT | | results section. | + +--------+ + + + documented in this encounter Results CBC TESTS 2 (01/12/1995 6:10 AM PDT) + + + + + + | Component | Value | Ref Range | Performed | Pathologist | | | | | At | Signature | + + + + + + | WHITE CELL | 12.3 | K/CU MM | | | | COUNT | | | | | + + + + + + | RED CELL | 2.78 (L) | M/CU MM | | | | COUNT | | | | | + + + + + + | HEMOGLOBIN | 7.6 (L) | GM/DL | | | + + + + + + | HEMATOCRIT | 22.8 (L) | % | | | + + + + + + | MCV | 82. (L) | FL | | | + + + + + + | MCH | 27.3 (L) | PG | | | + + + + + + | MCHC | 33.2 | GM/DL | | | + + + + + + | RDW | 12.3 | % | | | + + + + + + | PLATELET | 371. | K/CU MM | | | | COUNT | | | | | + + + + + + | MPV | 7.6 | FL | | | + + + + + + + + | Specimen | + + | | + + + + + + + | Performing | Address | City/State/Zipcode | Phone Number | | Organization | | | | + + + + + | [facility] | [address] | [place] [address] | | | PATHOLOGY | [address] | | | + + + + + CBC TESTS 2 (01/11/1995 6:00 AM PDT) + + + + + + | Component | Value | Ref Range | Performed | Pathologist | | | | | At | Signature | + + + + + + | WHITE CELL | 11.1 | K/CU MM | | | | COUNT | | | | | + + + + + + | RED CELL | 2.81 (L) | M/CU MM | | | | COUNT | | | | | + + + + + + | HEMOGLOBIN | 7.7 (L) | GM/DL | | | + + + + + + | HEMATOCRIT | 23. (L) | % | | | + + + + + + | MCV | 81.8 (L) | FL | | | + + + + + + | MCH | 27.2 (L) | PG | | | + + + + + + | MCHC | 33.2 | GM/DL | | | + + + + + + | RDW | 12.7 | % | | | + + + + + + | PLATELET | 459. (H) | K/CU MM | | | | COUNT | | | | | + + + + + + | MPV | 7.8 | [place] | | | + + + + + + + + | Specimen | + + | | + + + + + + + | Performing | Address | City/State/Zipcode | Phone Number | | Organization | | | | + + + + + | [facility] | [address] | [place] [address] | | | PATHOLOGY | [address] | | | + + + + + TRANSFUSION MEDICINE TESTS (01/07/1995 3:33 PM PDT) + + + + + + | Component | Value | Ref Range | Performed | Pathologist | | | | | At | Signature | + + + + + + | ABO GROUP | B | | | | + + + + + + | RH TYPE | POS | | | | + + + + + + | ANTIBODY | NEGATIVE | | | | | SCREEN | | | | | + + + + + + + + | Specimen | + + | | + + + + + + + | Performing | Address | City/State/Zipcode | Phone Number | | Organization | | | | + + + + + | [facility] | [address] | [place] [address] | | | PATHOLOGY | [address] | | | + + + + + documented in this encounter Visit Diagnoses Not on filedocumented in this encounter"
--- OUTSIDE RECORDS SUMMARY | ~2019-07-11 | XMS | Encounter Summary ---
Demographics + + + | Address | [address] | | | [place] [address] | + + + | Home Phone | | + + + | Preferred Language | Unknown | + + + | Marital Status | | + + + | Taoist Affiliation | Unknown | + + + [...] | Riley Chavez | ECON | [address] | | | | | [place] [address] | | + + + + + Care Team Providers + +------+ + | Care Supervisor Speech Name | Role | Phone | + +------+ + PCP | Unavailable | + +------+ + Encounter Details +--------+ + + + + | Date | Type | Department | Care Team | Description | +--------+ + + + + | 03/07/ | Results | | Other, Faculty | | | 1994 | Only | | [phone] | | +--------+ + + + + [...] | + +--------+ + + + | SPINE, ENTIRE 36, 2 | Routin | 08/31/1994 | | Results for this | | VIEWS | e | 4:30 PM | | procedure are in the | | | | PST | | results section. | + +--------+ + + + documented in this encounter Results SPINE, ENTIRE 36, 2 VIEWS (08/31/1994 4:30 PM PST) + + + + + + | Component | Value | Ref Range | Performed | Pathologist | | | | | At | Signature | + + + + + + | SPINE, | Radiologist 1: TASHA MCKINNEY | | | | | ENTIRE 36 , | W., [address]UR[address] | | | | | 2 VIEW | BEN | | | | | | | | | | | | 01 22 28 63 | | | | | | AP AND LATERAL FULL | | | | | | SPINE: 08/31/94 AT | | | | | | 1630 HOURS | | | | | | Dictated: 09/01/94 | | | | | | FINDINGS: Lower | | | | | | thoracic scoliosis | | | | | | affixed to the left to | | | | | | Banks's anglemeasuring 46 | | | | | | degrees. There is | | | | | | slight kyphosis. | | | | | | Lumbar vertebralbodies | | | | | | and posterior elements. | | | | | | IMPRESSION: Thoracic | | | | | | scoliosis affixed to the | | | | | | left of Banks's angle 46 | | | | | | degrees. END OF | | | | | | IMPRESSION: | | | | + + [...] | | + +---------+ + + | [facility] DEPARTMENT OF | | | | | RADIOLOGY | | | | + +---------+ + + documented in this encounter Visit Diagnoses Not on filedocumented in this encounter"
--- OUTSIDE RECORDS SUMMARY | ~2019-07-11 | XMS | Encounter Summary ---
Demographics + + + | Address | [address] | | | [place] [address] | + + + | Home Phone | | + + + | Preferred Language | Unknown | + + + | Marital Status | | + + + | Voodoo Affiliation | Unknown | + + + | Race | White | + + + | Ethnic Group | Not or | + + + Author + + + | Author | [facility] | + + + | Organization | [facility] | + + + | Address | Unknown | + + + | Phone | Unavailable | + + + Support + + + + + | Name | Relationship | Address | Phone | + + + + + | Riley Chavez | ECON | [address] | | | | | [place] [address] | | + + + + + Care Team Providers + +------+ + | Care Family Health Nurse Practitioner Name | Role | Phone | + +------+ + PCP | Unavailable | + +------+ + Encounter Details +--------+ + + + + | Date | Type | Department | Care Team | Description | +--------+ + + + + | 01/10/ | Procedure - | Digestive Health | Record, Operation | Operative Report | | 1994 | | [place] [facility] [address] | | | | | Transcribed | [address] | | | | | | Mailcode: [facility] | | [facility] | | | | | [facility], [address] | | | | | | [place], [place] | | | | | | [address] | | | | | | [phone] | | | +--------+ + + + [...] | + +--------+ + + + | OPERATION RECORD | | 01/10/1995 | | Results for this | | | | 12:00 AM | | procedure are in the | | | | PDT | | results section. | + +--------+ + + + documented in this encounter Results OPERATION RECORD (01/10/1995 12:00 AM PDT) + + | Procedure Note | + + | 01/10/1995 12:00 AM PDT [place] | | [facility] | | [address] [place] [address] | | [facility] | | | | OPERATION RECORD | | | | Med Rec No.: [id number] Date: 01/10/95 | | | | Name: Yolette Adams | | | | | | ATTENDING SURGEON: Arvin Hebert M.D. | | Axle Bearing Polisher, Orthopedics | | | | CHILD AND FAMILY COUNSELOR(S): Agnieszka Gomes M.D. | | Exterminator, Surgery - Preliminary | | | | POSTOPERATIVE DIAGNOSIS(ES): Idiopathic scoliosis. | | | | OPERATION(S) PERFORMED: Posterior instrumentation for deformity | | (eight levels). Posterior arthrodesis for | | deformity (eight levels). Right iliac crest | | bone graft. | | | | ANESTHESIA: General. | | | | SPECIMEN(S) REMOVED: None. | | | | FINDINGS: Through a posterior midline approach, the | | spine was instrumented from T6 to L2 using a | | unilateral Synthes US | | titanium implants. Seven hooks were utilized with three pedicle hooks going | | up at 6,7, and 8 and four go down at 11, 12, L1 and L2. No de-rotatation | | maneuver was completed, and the spine was brought to the gume utilizing the | | gume persuader. The iliac crest bone graft was taken from the right side and | | placed on the decorticated surfaces. There were no complications. Spinal | | cord monitoring was normal throughout. Estimated blood loss was 300 mL. | | | | PROCEDURE: Under general anesthesia in the supine | | position the patient was transferred to the | | prone position on a four-communications agent | | frame. The back was prepped and draped in the usual sterile fashion. | | | | A midline incision was made from approximately T6 to L2 and the | | subperiosteal approach completed. Hemostasis was obtained with | | electrocautery. Pedicle hooks were placed at T6-7 and 8 upgoing and lamina | | hooks were placed at 11, 12, 1 and 2. Thoracic lamina hooks were placed | | down going at 11 and 12, and small lamina hooks placed at 1 and 2. | | Laminotomies were performed to allow these hooks to be placed. | | | | A 250 mm gume was cut to an appropriate length and the top and bottom hooks | | applied to the gume and then sequentially going proximally and distally. The | | hooks were approximated to the gume until appropriate correction had been | | obtained. Thoracic kyphosis and lumbar lordosis was minimally contoured to | | her somewhat contoured to the gume prior to placement. Once the gume was in | | place, all of the nuts were tightened with a torch wrench. Spinal cord | | monitoring was normal throughout this process. All soft tissues had | | previously been removed from all facet joints and transverse processes and | | lamina. | | | | A separate incision was made in the right iliac crest and continued down to | | the iliac process, which was splint and a subperiosteal dissection | | completed. The outer cortex of the ilium was decorticated and removed, | | first using a 44 mm acetabular reamer and the remainder with a curet. There | | was not a substantial amount of cancellous bone but enough to allow for bone | | graft harvesting. The bleeding edges of the cancellous bone were then | | covered with bone wax and the wound closed in layers with #0 Vicryl, and | | #2-0 Vicryl in subcuticular, and #3-0 PDS reinforced with Mastisol and | | Steri-Strips. | | | | Attention was then returned back to the midline wound were all of the | | exposed surfaces on the left side were decorticated and the facets packed | | with bone. The right side, likewise, was decorticated and facets | | extrapated and packed. Cortical cancellous bone was placed on these | | surfaces. The midline wound was then closed with #0 Vicryl, #2-0 Vicryl, | | and subcuticular #3-0 PDS suture reinforced with Mastisol and Steri-Strips. | | A sterile dressing was applied. There were no complications and the patient | | was transferred to Post Anesthesia Care Unit in good condition. | | | | An appropriate amount of Duramorph as recommended by the anesthesiologist | | was then injected intraoperatively at the L1-2 interspace. | | | | | | Arvin Hebert M.D. | | Axle Bearing Polisher, Orthopedics | | | | SAHARA/saravanan | | | | P | | C: 01/20/95 saravanan | | cc: SONYA WELLINGTON MD | | [address] | | [facility] [address] | | | + + documented in this encounter Visit Diagnoses Not on filedocumented in this encounter"
--- OUTSIDE RECORDS SUMMARY | ~2019-07-11 | XMS | Encounter Summary ---
Demographics + + + | Address | [address] | | | [place] [address] | + + + | Home Phone | | + + + | Preferred Language | Unknown | + + + | Marital Status | | + + + | Sikh Affiliation | Unknown | + + + | Race | White | + + + | Ethnic Group | Not or | + + + Author + + + | Author | [facility] | + + + | Organization | [facility] | + + + | Address | Unknown | + + + | Phone | Unavailable | + + + Support + + + + + | Name | Relationship | Address | Phone | + + + + + | Riley Chavez | ECON | [address] | | | | | [place] [address] | | + + + + + Care Team Providers + +------+ + | Care Liner Roll Changer Name | Role | Phone | + +------+ + PCP | Unavailable | + +------+ + Encounter Details +--------+ + + + + | Date | Type | Department | Care Team | Description | +--------+ + + + + | 08/14/ | Office | [facility] | Report, Outpatient | Progress Note | | 1996 | Visit-Trans | & Rehabilitation | Consultation | | | | cribed | [address] | | | | | | [address] Mailcode: | | | | | | [id number] [facility] | | | | | | [place], | | | | | | [place] [address] | | | | | | [phone] | | | +--------+ + + + [...] as of this encounter Progress Notes Interface, Graphic Art Technician In - 09/01/2006 3:09 AM PST CLINIC DATE: 08/14/96 CLINIC NAME: DISCIPLINE: ORTHOPEDICS Yolette is 15 years, seven months of age and seen in follow-up for her spine pain, for which she was seen in the Emergency Department. This is quite unsettling to her and her mom states that she needs massages and intermittently takes Tylenol, and even Tylenol #3 for control of it. She points to the low part of her lumbar incision and there is a painful "crunching" area there. Her radiographs taken today with a paper clip marker that is just visible near the inferior fork of the construct. I reviewed this with them and I think there may be a bursa over the end of the instrumentation that is painful to her. I know the instrumentation appears to have been dislodged. I'd like to see her back on a p.r.n. basis, or at her regularly scheduled time. If she'd like to have the gume removed, I think this would be appropriate. The bursa formation may be an issue for her. Arvin Hebert M.D. Horizontal Drill Operator, Orthopedics TK:hetal documented in this encounter Plan of Treatment Not on filedocumented as of this encounter Visit Diagnoses Not on filedocumented in this encounter
--- OUTSIDE RECORDS SUMMARY | ~2019-07-11 | XMS | Encounter Summary ---
Demographics + + + | Address | [address] | | | [place] [address] | + + + | Home Phone | | + + + | Preferred Language | Unknown | + + + | Marital Status | | + + + | Jain Affiliation | Unknown | + + + | Race | White | + + + | Ethnic Group | Not or | + + + Author + + + | Author | [facility] | + + + | Organization | [facility] | + + + | Address | Unknown | + + + | Phone | Unavailable | + + + Support + + + + + | Name | Relationship | Address | Phone | + + + + + | Riley Chavez | ECON | [address] | | | | | [place] [address] | | + + + + + Care Team Providers + +------+ + | Care Telemarketer Name | Role | Phone | + +------+ + PCP | Unavailable | + +------+ + Encounter Details +--------+ + + + + | Date | Type | Department | Care Team | Description | +--------+ + + + + | 01/16/ | Discharge | [facility] at | Summary, Discharge | D/C Summary ODDS | | 1994 | Summary-Tra | [address] | | | | | nscribed | [address] | | | | | | Mailcode: [address] | | | | | | [place] | | | | | | [facility] | | | | | | [place] [address] | | | | | | [phone] | | | +--------+ + + + [...] + + documented as of this encounter Discharge Summaries Interface, Computer Numerical Control Programmer In - 10/08/2006 3:11 AM PDT [address] [address] [facility] MEDICAL SUMMARY OF HOSPITALIZATION Med Rec No.: [id number] Admission Date: 01/10/95 Name: Yolette Adams Discharge Date: 01/16/95 STAFF PHYSICIAN: Arvin Hebert M.D. Manager Environmental Affairs, Orthopedics PRINCIPAL FINAL DIAGNOSIS: Progressive left-sided scoliosis. ADDITIONAL DIAGNOSIS(ES): None. PRINCIPAL PROCEDURE: Posterior arthrodesis with AO spinal fixation of T6 through L2 and right posterior iliac crest bone graft. ADDITIONAL PROCEDURE(S): Observation. REASON FOR ADMISSION: This is a [age] year-old female with a 46 degree left thoracic scoliosis with evidence of progression. She is admitted for instrumentation and arthrodesis with iliac crest bone graft of her thoracic spine. PHYSICAL EXAMINATION: GENERAL APPEARANCE: This is a healthy [age] year-old female who is alert and oriented and in no acute distress. CARDIOVASCULAR: Regular rate and rhythm. LUNGS: Clear to auscultation. ABDOMEN: Soft. Non-tender, non-distended. BACK: The patient does have a left thoracic scoliosis. NEUROLOGICAL EXAMINATION: Motor in bilateral upper extremities, deltoids, triceps, biceps, wrist extensors, wrist flexors are 5/5 bilaterally. Lower extremities demonstrate iliopsoas, hamstrings, quadriceps, tibialis anterior, gastrocnemius, soleus, extensor hallucis longus, flexor hallucis longus are 5/5 bilaterally. Sensation is intact in bilateral upper and lower extremities. Biceps reflexes are +1 bilaterally; patellar reflexes are +2 bilaterally. Achilles reflexes are +2 bilaterally. HOSPITAL COURSE: The patient was admitted to the Orthopedic Spine Service on 01/10/95. She underwent the above indicated operative procedure on that day and was transferred to the floor postoperatively. The patient was begun on a clear liquid diet. She did complain of numbness over her left lateral lower leg and foot. Her motor function remained 4+ to 5/5 bilaterally in the lower extremities. Her foot sensation began to improve on postoperative day two. Physical Therapy began working with the patient on postoperative day two. Her Choe catheter was discontinued on postoperative day three. Scoliosis standing films were obtained on 01/14/95 and these were normal. Her intravenous fluids were also decreased on 01/14/95. The patient continued to work with Physical Therapy and was felt stable for discharge to home on 01/16/95. CONDITION ON DISCHARGE: Stable. DISCHARGE INSTRUCTION(S): Discharge medications: 1. Vicodin, one or two tablets every four to six hours as needed for pain. 2. Colace 100 mg p.o. twice a day. Follow-up care: The patient will follow-up with Dr. Arvin Hebert in ten to fourteen days. Diet on discharge: Regular as tolerated. Activities on discharge: Activities will be as tolerated. Agnieszka Gomes M.D. Resident, Orthopedics Arvin Hebert M.D. Manager Environmental Affairs, Orthopedics JR:eliezer cc: SONYA WELLINGTON MD BOX [facility] [id number] documented in this encounter Plan of Treatment Not on filedocumented as of this encounter Visit Diagnoses Not on filedocumented in this encounter"
--- OUTSIDE RECORDS SUMMARY | ~2019-07-11 | XMS | Encounter Summary ---
Demographics + + + | Address | [address] | | | [place] [address] | + + + | Home Phone | | + + + | Preferred Language | Unknown | + + + | Marital Status | | + + + | Anabaptism Affiliation | Unknown | + + + | Race | White | + + + | Ethnic Group | Not or | + + + Author + + + | Author | [facility] | + + + | Organization | [facility] | + + + | Address | Unknown | + + + | Phone | Unavailable | + + + Support + + + + + | Name | Relationship | Address | Phone | + + + + + | Riley Chavez | ECON | [address] | | | | | [place] [address] | | + + + + + Care Team Providers + +------+ + | Care Science Professor Name | Role | Phone | + [...] [address] | | | | | | [place], [place] | | | | | | [address] | | | +--------+ + + + [...] as of this encounter Progress Notes Interface, Slide Maker In 10/18/2006 1:01 AM PDT [facility] [address] [address] August 31, 1994 Varun LAWSON MD [address] [place] [address] RE:Graham Adams MR#:[id number] Lawson: Graham [...] favor brace treatment. Sincerely, Arvin Hebert M.D. Regulatory Affairs Manager, Orthopedics SAHARA/ September 01, 1994 nterface, Slide Maker In 10/18/2006 1:01 AM PDT [facility] [address], [place], [place] [address] August 31, 1994 BEATRIZ ARRIAZA MD [facility] [address] [facility] [address] RE:Yolette Adams MR#:[id number] Dear Doctor Abeba: Graham Adams was seen on referral from Chanelle Bishop MD, in [place], [place], for evaluation of Graham Adams's left thoracic scoliosis. She is being seen for an MRI scan and the left thoracic curvature is very uncommon and has an approximate 35% chance of an intraspinal abnormality. Her curve is such now that a surgical treatment has been recommended, although bracing is an option. Graham and her mother are discussing this and deciding how they want to proceed with it. I will keep you apprised of how her diagnostic studies and treatment progress. Sincerely, Arvin Hebert M.D. Regulatory Affairs Manager, Orthopedics VALERIK:abebe August 31, 1994 documented in this encounter Plan of Treatment Not on filedocumented as of this encounter Visit Diagnoses Not on filedocumented in this encounter"
--- OUTSIDE RECORDS SUMMARY | ~2019-07-11 | XMS | Encounter Summary ---
Demographics + + + | Address | [address] | | | [place] [address] | + + + | Home Phone | | + + + | Preferred Language | Unknown | + + + | Marital Status | | + + + | Protestant Affiliation | Unknown | + + + | Race | White | + + + | Ethnic Group | Not or | + + + Author + + + | Author | [facility] | + + + | Organization | [facility] | + + + | Address | Unknown | + + + | Phone | Unavailable | + + + Support + + + + + | Name | Relationship | Address | Phone | + + + + + | Riley Chavez | ECON | [address] | | | | | [place] [address] | | + + + + + Care Team Providers + +------+ + | Care Cut Off Machine Operator Name | Role | Phone | + +------+ + PCP | Unavailable | + +------+ + Encounter Details +--------+ + + + + | Date | Type | Department | Care Team | Description | +--------+ + + + + | 08/31/ | Office | UNKNOWN DEPARTMENT | Report, Outpatient | Progress Note | | 1994 | Visit-Trans | [address] | Consultation | | | | lily | [place] | | | | | | [place], [place] | | | | | | [address] | | | +--------+ + + + [...] as of this encounter Progress Notes Interface, Mechanical Engineering Draftsperson In - 10/18/2006 1:01 AM PDT CLINIC DATE: CLINIC NAME: ORTHOPEDIC - CLINIC DISCIPLINE: ORTHOPEDICS "Graham" Bryan is a 13+8 female seen for evaluation of left thoracic scoliosis documented by her chiropractic physician and her primary care doctor in [place], [place]. The original curvature was noted by an aunt instructor adjunct pharmacy technician. At age 13+8, she is about 1-2 months postmenarchal. She is otherwise in good health and takes no other medications. She does not have any ongoing pain but does have some intermittent pain in her spine. There are no neurologic symptoms. PHYSICAL EXAMINATION: Graham has a very clear left thoracic scoliosis with a very marked rib prominence. She is overall well-balanced, and her iliac crest is level. Her reflexes are 1-2+ and symmetric. Her straight leg raising is negative. There is some mild hamstring tightness. Abdominal reflexes appear normal. Radiographically from May 1994, there is a left thoracic curvature, Romel III, measuring 40 . Radiographs were repeated today and the curvature measures 46 . IMPRESSION: Idiopathic juvenile scoliosis, progressive, left thoracic, rule out intraspinal process. The most striking feature of Graham's scoliosis is that it is left-sided. Even though her neurologic examination is normal, an magnetic resonance imaging (MRI) is indicated to rule out the possibility of a syringomyelia or Arnold-Chiari malformation. Approximately a third of cases presenting with idiopathic scoliosis have such an abnormality and I think clearly warrants the MRI scan. The 46 curvature that she has today is an indication for surgical treatment, although brace treatment could be attempted. Statistically, I think a 13+8-year-old who is relatively immature skeletally, as Graham is, has a significant chance of progression. I think Graham clearly wants to have the brace than surgical treatment, and I am amenable to going with this, but she needs to be carefully followed as I think it will most likely progress and need a surgical treatment. This was discussed with Graham and her mom. I reviewed this with both, and the De Icer will be contacted to review this with them. I would like to see them back in 2-3 weeks so that we can look at the MRI scan again, discuss brace versus surgical treatment. Arvin Hebert M.D. Engineer Remote Control Diesel, Orthopedics SAHARA:magi documented in this encounter Plan of Treatment Not on filedocumented as of this encounter Visit Diagnoses Not on filedocumented in this encounter
--- OUTSIDE RECORDS SUMMARY | ~2019-07-11 | XMS | Encounter Summary ---
Demographics + + + | Address | [address] | | | [place] [address] | + + + | Home Phone | | + + + | Preferred Language | Unknown | + + + | Marital Status | | + + + | Quaker Affiliation | Unknown | + + + | Race | White | + + + | Ethnic Group | Not or | + + + Author + + + | Author | [facility] | + + + | Organization | [facility] | + + + | Address | Unknown | + + + | Phone | Unavailable | + + + Support + + + + + | Name | Relationship | Address | Phone | + + + + + | Riley Chavez | ECON | [address] | | | | | [place] [address] | | + + + + + Care Team Providers + +------+ + | Care Ground Intelligence Officer Name | Role | Phone | + +------+ + PCP | Unavailable | + +------+ + Encounter Details +--------+ + + + + | Date | Type | Department | Care Team | Description | +--------+ + + + + | 10/01/ | Office | [facility] | Report, Outpatient | Progress Note | | 1997 | Visit-Trans | & Rehabilitation | Consultation | | | | cribed | [address] | | | | | | Loop Mailcode: | | | | | | [address] | | | | | | [place], | | | | | | [place] [address] | | | | | | [phone] | | | +--------+ + + + [...] as of this encounter Progress Notes Interface, Garnishment Specialist In - 07/22/2006 1:06 AM PST CLINIC DATE: 10/01/97 CLINIC NAME: SCOLIOSIS CLINIC DISCIPLINE: ORTHOPEDICS Yolette is 16 plus nine and seen in follow-up three years status post her scoliosis surgery. She remains with acceptable correction at about 30 degrees with the gume in good position. She is continuing to have back pain. That pain does not radiate into her lower extremities, does not keep her from doing any activities, does not stop her from sleeping. On examination, there is no tenderness over the caudal end of the gume. At any point in time she wants to go through an exercise program, I think that is the next step to decrease her symptoms. She does not want to do that right now, and I think that it is going to hold off. At any point in time she does want to do the exercises and wants to make the investment in time, we will set her up for that treatment. Arvin Hebert M.D. Adjunct Payroll And Benefits Analyst, Orthopedics TK:sol documented in this encounter Plan of Treatment Not on filedocumented as of this encounter Visit Diagnoses Not on filedocumented in this encounter"
--- OUTSIDE RECORDS SUMMARY | ~2019-07-11 | XMS | Clinical Summary ---
Demographics + + + | Address | [address] [facility] [address] | | | [place] [address] | + + + | Home Phone | | + + + | Preferred Language | Unknown | + + + | Marital Status | Unknown | + + + | Jehovah'S Witness Affiliation | Unknown | + + + | Race | Unknown | + + + | Ethnic Group | Unknown | + + + Author + + + | Author | [facility] (Historical as of | | | 02-10-19) | + + + | Organization | [facility] (Historical as of | | | 02-10-19) | + + + | Address | Unknown | + + + | Phone | Unavailable | + + + Care Team Providers + +------+ + | Care Judicial Clerk Name | Role | Phone | + +------+ + PP | Unavailable | + +------+ + Allergies Not on File Current Medications Not on file Active Problems Not on file Social History + +-------+ +--------+------+ | Tobacco [...] on file | | + + + Plan of Treatment Not on file Results Not on filefrom Last 3 Months"
--- OUTSIDE RECORDS SUMMARY | ~2019-07-11 | XMS | Encounter Summary ---
Demographics + + + | Address | [address] | | | [place] [address] | + + + | Home Phone | | + + + | Preferred Language | Unknown | + + + | Marital Status | | + + + | Sabianism Affiliation | Unknown | + + + [...] | Riley Chavez | ECON | [address] | | | | | [place] [address] | | + + + + + Care Team Providers + +------+ + | Care Production Engine Repairer Name | Role | Phone | + +------+ + PCP | Unavailable | + +------+ + Encounter Details +--------+ + + + + | Date | Type | Department | Care Team | Description | +--------+ + + + + | 01/09/ | Results | | Other, Faculty | | | 1996 | Only | | [phone] | | +--------+ + + + + [...] | X-RAY [facility] | Routin | 01/10/1996 | | Results for this | | ENTIRE 36 1 VIEW | e | 2:00 PM | | procedure are in the | | | | PDT | | results section. | + +--------+ + + + documented in this encounter Results [facility] ENTIRE 36 1 VIEW (01/10/1996 2:00 PM PDT) + + + + + + | Component | Value | Ref Range | Performed | Pathologist | | | | | At | Signature | + + + + + + | [facility] | Radiologist 1: TASHA MCKINNEY | | | | | ENTIRE 36 | W.LENCHO COLLEEN | | | | | 1 VIEW | BEN | | | | | | | | | | | | 07-18-27 | | | | | | SINGLE STANDING PA VIEW | | | | | | OF THE SPINE: 01/10/96 | | | | | | at 14:00 Dictated | | | | | | 01/11/96 Comparison is | | | | | | made with examination of | | | | | | 07/19/95. FINDINGS: | | | | | | The previously | | | | | | described levoscoliosis | | | | | | of the | | | | | | thoracolumbarspine that | | | | | | before measured 26 | | | | | | degrees now measures 30 | | | | | | degrees. Theapex of | | | | | | the scoliosis is at T10, | | | | | | and the convexity is | | | | | | oriented to theleft. | | | | | | Posterior Silva | | | | | | distraction gume is again | | | | | | noted. IMPRESSION: | | | | | | Interval increase in the | | | | | | levoscoliosis of the | | | | | | thoracolumbar spine. | | | | | | END [...] | | + +---------+ + + | [facility] OF | | | | | RADIOLOGY | | | | + +---------+ + + documented in this encounter Visit Diagnoses Not on filedocumented in this encounter"
--- OUTSIDE RECORDS SUMMARY | ~2019-07-11 | XMS | Encounter Summary ---
Demographics + + + | Address | [address] | | | [place] [address] | + + + | Home Phone | | + + + | Preferred Language | Unknown | + + + | Marital Status | | + + + | Druze Affiliation | Unknown | + + + | Race | White | + + + | Ethnic Group | Not or | + + + Author + + + | Author | [facility] | + + + | Organization | [facility] | + + + | Address | Unknown | + + + | Phone | Unavailable | + + + Support + + + + + | Name | Relationship | Address | Phone | + + + + + | Riley Chavez | ECON | [address] | | | | | [place] [address] | | + + + + + Care Team Providers + +------+ + | Care Guest Service Representative Name | Role | Phone | + +------+ + PCP | Unavailable | + +------+ + Encounter Details +--------+ + + + + | Date | Type | Department | Care Team | Description | +--------+ + + + + | 01/09/ | Office | [facility] | Report, Outpatient | Progress Note | | 1995 | Visit-Trans | & Rehabilitation | Consultation | | | | cribed | [address] | | | | | | Loop Mailcode: | | | | | | [address] | | | | | | [place], | | | | | | [place] [address] | | | | | | [phone] | | | +--------+ + + + [...] as of this encounter Progress Notes Interface, Ammunition Officer In - 09/18/2006 3:03 AM PDT CLINIC DATE: 01/10/96 CLINIC NAME: SCOLIOSIS CLINIC DISCIPLINE: ORTHOPEDICS Yolette is one-year status post a single Synthes gume instrumentation. She has overall done well with this. She doesn't really have any pain and has steadily increased her activity. Radiographs today show maintenance of this 30-degree curvature. There is apparent consolidation of the arthrodesis mass. All questions were answered. I would like to see her back in one year with repeat AP scoliosis radiograph. Arvin Hebert M.D. Seo Intern, Orthopedics SAHARA/dawood A cc: documented in this encounter Plan of Treatment Not on filedocumented as of this encounter Visit Diagnoses Not on filedocumented in this encounter"
--- OUTSIDE RECORDS SUMMARY | ~2019-07-11 | XMS | Encounter Summary ---
Demographics + + + | Address | [address] | | | [place] [address] | + + + | Home Phone | | + + + | Preferred Language | Unknown | + + + | Marital Status | | + + + | Taoist Affiliation | Unknown | + + + | Race | White | + + + | Ethnic Group | Not or | + + + Author + + + | Author | [facility] | + + + | Organization | [facility] | + + + | Address | Unknown | + + + | Phone | Unavailable | + + + Support + + + + + | Name | Relationship | Address | Phone | + + + + + | Riley Chavez | ECON | [address] | | | | | [place] [address] | | + + + + + Care Team Providers + +------+ + | Care Mushroom Growth Media Mixer Name | Role | Phone | + [...] [address] | | | | | | [facility] | | | | | | [place] [address] | | | | | | [phone] | | | +--------+ + + + [...] as of this encounter Discharge Summaries Interface, Principal Investigator In - 10/08/2006 3:11 AM PDT [address] [address] [facility] MEDICAL SUMMARY OF HOSPITALIZATION Med Rec No.: [id number] Admission Date: 01/10/95 Name: Yolette Adams Discharge Date: 01/16/95 STAFF PHYSICIAN: Arvin Hebert M.D. School Library Media Program Director, Orthopedics PRINCIPAL FINAL DIAGNOSIS: Progressive left-sided scoliosis. [...] care: The patient will follow-up with Dr. Arvni Hebert in ten to fourteen days. Diet on discharge: Regular as tolerated. Activities on discharge: Activities will be as tolerated. Agnieszka Gomes M.D. Resident, Orthopedics Arvin Hebert M.D. School Library Media Program Director, Orthopedics JR:[email or web address] cc: SONYA WELLINGTON MD BOX [facility] [address] documented in this encounter Plan of Treatment Not on filedocumented as of this encounter Visit Diagnoses Not on filedocumented in this encounter"
--- OUTSIDE RECORDS SUMMARY | ~2019-07-11 | XMS | Encounter Summary ---
Demographics + + + | Address | [address] | | | [place] [address] | + + + | Home Phone | | + + + | Preferred Language | Unknown | + + + | Marital Status | | + + + | Yazidism Affiliation | Unknown | + + + | Race | White | + + + | Ethnic Group | Not or | + + + Author + + + | Author | [facility] | + + + | Organization | [facility] | + + + | Address | Unknown | + + + | Phone | Unavailable | + + + Support + + + + + | Name | Relationship | Address | Phone | + + + + + | Riley Chavez | ECON | [address] | | | | | [place] [address] | | + + + + + Care Team Providers + +------+ + | Care Door Maker Name | Role | Phone | + +------+ + PCP | Unavailable | + +------+ + Encounter Details +--------+ + + + + | Date | Type | Department | Care Team | Description | +--------+ + + + + | 04/12/ | Office | [facility] | Report, Outpatient | Progress Note | | 1994 | Visit-Trans | & Rehabilitation | Consultation | | | | cribed | [address] | | | | | | Loop Mailcode: | | | | | | [address] Physician[address] | | | | | | [place], | | | | | | [place] [address] | | | | | | [phone] | | | +--------+ + + + [...] as of this encounter Progress Notes Interface, Passenger Flagman In - 10/05/2006 3:00 AM PDT CLINIC DATE: 04/12/95 CLINIC NAME: DISCIPLINE: ORTHOPEDICS Yolette is 14 years, three months of age and now three months status post instrumentation for her scoliosis. She is doing well overall. There was a communication error and this is the first time she is being seen after her surgery. She was asymptomatic and even began a jazz dance class. Radiographically she has lost some correction and now measures about 25 degrees, which is 10 degree increase over her postoperative radiograph. The instrumentation largely remains in the same position. The wounds are well-healed and all appears to be well in line. She is asked to return in three months for reevaluation with a AP scoliosis radiograph. They will call earlier if they have any problems. Arvin Hebert M.D. Diagnostic Technologist, Orthopedics TK:hetal documented in this encounter Plan of Treatment Not on filedocumented as of this encounter Visit Diagnoses Not on filedocumented in this encounter"
--- OUTSIDE RECORDS SUMMARY | ~2019-07-11 | XMS | Encounter Summary ---
Demographics + + + | Address | [address] | | | [place] [address] | + + + | Home Phone | | + + + | Preferred Language | Unknown | + + + | Marital Status | | + + + | Rastafarian Affiliation | Unknown | + + + | Race | White | + + + | Ethnic Group | Not or | + + + Author + + + | Author | [facility] | + + + | Organization | [facility] | + + + | Address | Unknown | + + + | Phone | Unavailable | + + + Support + + + + + | Name | Relationship | Address | Phone | + + + + + | Riley Chavez | ECON | [address] | | | | | [place] [address] | | + + + + + Care Team Providers + +------+ + | Care Environmental Emergencies Assistant Name | Role | Phone | + [...] | | | | | | [place], | | | | | | [place] [address] | | | | | | [phone] | | | +--------+ + + + [...] as of this encounter Progress Notes Interface, Regional Vice President Surgical Sales In - 07/22/2006 1:06 AM PST CLINIC [...] tenderness over the caudal end of the ugme. At any point in time she wants [...] for that treatment. Arvin Hebert M.D. Adjunct Bpm Analyst, Orthopedics TK:sol documented in this encounter Plan of Treatment Not on filedocumented as of this encounter Visit Diagnoses Not on filedocumented in this encounter"
--- OUTSIDE RECORDS SUMMARY | ~2019-07-11 | XMS | Clinical Summary ---
Demographics + + + | Address | [address] | | | [place] [address] | + + + | Home Phone | | + + + | Preferred Language | Unknown | + + + | Marital Status | | + + + | Rastafari Affiliation | Unknown | + + + [...] [address] | | | | | [place] [address] | | + + + + + Care Team Providers + +------+ + | Care Applications Development Consultant Name | Role | Phone | + +------+ + | No Pcp Per Patient | PCP | Unavailable | + +------+ + Source Comments KAHLIL is fully live on both [facility] and [facility]Patient[facility] Allergies No Known Allergies Medications Not on file Active Problems Not [...] recent travel history available. | + + Last Filed Vital Signs Not on file Plan of Treatment + + + + + | Health Maintenance | Due Date | Last Done | Comments | + + + + + | Influenza (Flu) | | | | | vaccination (#1) | 9 | | | + + + + + | Pneumococcal | Aged Out | | No longer eligible | | vaccination | | | based on patient's | | | | | age to complete this | | | | | topic | + + + + + Results Not on filefrom Last 3 Months"
--- OUTSIDE RECORDS SUMMARY | ~2019-07-11 | XMS | Clinical Summary ---
Demographics + + + | Address | [address] [facility] [address] | | | [place] [address] | + + + | Home Phone | | + + + | Preferred Language | Unknown | + + + | Marital Status | Unknown | + + + | Uatsdin Affiliation | Unknown | + + + | Race | Unknown | + + + | Ethnic Group | Unknown | + + + Author + + + | Author | [facility] (Historical as of | | | 02-10-19) | + + + | Organization | [facility] (Historical as of | | | 02-10-19) | + + + | Address | Unknown | + + + | Phone | Unavailable | + + + Care Team Providers + +------+ + | Care Leather Lacer Name | Role | Phone | + [...]
--- OUTSIDE RECORDS SUMMARY | ~2019-07-11 | XMS | Encounter Summary ---
Demographics + + + | Address | [address] | | | [place] [address] | + + + | Home Phone | | + + + | Preferred Language | Unknown | + + + | Marital Status | | + + + | Jainism Affiliation | Unknown | + + + | Race | White | + + + | Ethnic Group | Not or | + + + Author + + + | Author | [facility] | + + + | Organization | [facility] | + + + | Address | Unknown | + + + | Phone | Unavailable | + + + Support + + + + + | Name | Relationship | Address | Phone | + + + + + | Riley Chavez | ECON | [address] | | | | | [place] [address] | | + + + + + Care Team Providers + +------+ + | Care Delivery Specialist Name | Role | Phone | + +------+ + PCP | Unavailable | + +------+ + Encounter Details +--------+ + + + + | Date | Type | Department | Care Team | Description | +--------+ + + + + | 01/10/ | Procedure - | Digestive Health | Record, Operation | Operative Report | | 1994 | | [place] [facility] [address] | | | | | Transcribed | [address] | | | | | | Mailcode: [facility] | | | | | | [facility] | | | | | | [facility], [address] | | | | | | [place], [place] | | | | | | [address] | | | | | | [phone] | | | +--------+ + + + [...] + + | 01/10/1995 12:00 AM PDT [place] | | [facility] | | [address] [place] [address] | | [facility] | | | | OPERATION RECORD | | | | Med Rec No.: [id number] Date: 01/10/95 | | | | Name: Yolette Adams | | | | | | ATTENDING SURGEON: Arvin Hebert M.D. | | Compressor Mechanic, Orthopedics | | | | MOBILE DESIGNER(S): Agnieszka Gomes M.D. | | Cold Water Machine Operator, Surgery - Preliminary | | | | [...] the | | prone position on a four-audit manager | | frame. The back was prepped [...] | | Arvin Hebert M.D. | | Compressor Mechanic, Orthopedics | | | | SAHARA/saravanan | | | | P | | C: 01/20/95 saravanan | | cc: SONYA WELLINGTON MD | | [address] | | [facility] [address] | | | + + documented in this encounter Visit Diagnoses Not on filedocumented in this encounter"
--- OUTSIDE RECORDS SUMMARY | ~2019-07-11 | XMS | Encounter Summary ---
Demographics + + + | Address | [address] | | | [place] [address] | + + + | Home Phone | | + + + | Preferred Language | Unknown | + + + | Marital Status | | + + + | Bahai Affiliation | Unknown | + + + [...] | Riley Chavez | ECON | [address] | | | | | [place] [address] | | + + + + + Care Team Providers + +------+ + | Care Rail Maintenance Worker Name | Role | Phone | + +------+ + PCP | Unavailable | + +------+ + Encounter Details +--------+ + + + + | Date | Type | Department | Care Team | Description | +--------+ + + + + | 03/07/ | Results | | Other, Faculty | | | 1994 | Only | | [phone] | | +--------+ + + + + [...] | | + +---------+ + + | [facility] DEPARTMENT OF | | | | | RADIOLOGY | | | | + +---------+ + + documented in this encounter Visit Diagnoses Not on filedocumented in this encounter"
--- OUTSIDE RECORDS SUMMARY | ~2019-07-11 | XMS | Encounter Summary ---
Demographics + + + | Address | [address] | | | [place] [address] | + + + | Home Phone [...] | Riley Chavez | ECON | [address] | | | | | [place] [address] | | + + + + + Care Team Providers + +------+ + | Care Server Name | Role | Phone | + +------+ + PCP | Unavailable | + +------+ + Encounter Details +--------+ + + + + | Date | Type | Department | Care Team | Description | +--------+ + + + + | 04/12/ | Results | | Other, Faculty | | | 1994 | Only | | [phone] | | +--------+ + + + + [...] SPINE, ENTIRE 36, 2 | Routin | 04/12/1995 | | Results for this | | VIEWS | e | 1:35 PM | | procedure are in the | | | | PDT | | results section. | + +--------+ + + + documented in this encounter Results SPINE, ENTIRE 36, 2 VIEWS (04/12/1995 1:35 PM PDT) + + + + + + | Component | Value | Ref Range | Performed | Pathologist | | | | | At | Signature | + + + + + + | SPINE, | Radiologist 1: TASHA MCKINNEY | | | | | ENTIRE 36 , | WArelis Urbina-Radiologist 2: | | | | | 2 VIEW | YOLANDA FOX, | | | | | | YOLETTE MUSA | | | | | | | | | | | | | | | | | | [birth year] | | | | | | COMPLETE SPINE, TWO | | | | | | VIEWS: 04/12/95 AT | | | | | | 1335 HOURS Dictated: | | | | | | 04/13/95 COMPARISON: | | | | | | Comparison is made | | | | | | with a prior study from | | | | | | January 14, 1995. FINDINGS: | | | | | | A single posterior | | | | | | gume is identified along | | | | | | the concave sideof the | | | | | | lower thoracic | | | | | | levoscoliosis. This | | | | | | extends from C6 to L2. A | | | | | | mild to moderate degree | | | | | | of scoliosis is seen, | | | | | | mildly increased overthe | | | | | | previous film. The | | | | | | normal thoracic kyphosis | | | | | | is slightlyexaggerated | | | | | | on the current film. | | | | | | No new focal osseous | | | | | | abnormality isseen. | | | | | | IMPRESSION: Unchanged | | | | | | posterior distraction | | | | | | gume and a slight | | | | | | increase inlevoscoliosis | | | | | | of the lower thoracic | | | | | | spine. END OF | | | | | [...]
--- OUTSIDE RECORDS SUMMARY | ~2019-07-11 | XMS | Encounter Summary ---
Demographics + + + | Address | [address] | | | [place] [address] | + + + | Home Phone [...] | Riley Chavez | ECON | [address] | | | | | [place] [address] | | + + + + + Care Team Providers + +------+ + | Care Surface Room Shop Optician Name | Role | Phone | + +------+ + PCP | Unavailable | + +------+ + Encounter Details +--------+ + + + + | Date | Type | Department | Care Team | Description | +--------+ + + + + | 02/18/ | Results | | Other, Faculty | | | 1996 | Only | | [phone] | | +--------+ + + + + [...] | X-RAY SCOLI SPINE | Routin | 08/14/1996 | | Results for this | | ENTIRE 36 1 VIEW | e | 3:30 PM | | procedure are in the | | | | PST | | results section. | + +--------+ + + + documented in this encounter Results SCOLI SPINE ENTIRE 36 1 VIEW (08/14/1996 3:30 PM PST) + + + + + + | Component | Value | Ref Range | Performed | Pathologist | | | | | At | Signature | + + + + + + | SCOLI SPINE | Radiologist 1: | | | | | ENTIRE 36 | RILEY VERONICA, | | | | | 1 VIEW | M.D.-Radiologist 2: | | | | | | PIPER CONDE, | | | | | | M.D.YOLETTE REDD | | | | | | | | | | | | | | | | | | [birth year] SPINE: | | | | | | 08/14/96 at 1530 | | | | | | hours. Dictated: | | | | | | 08/15/96 COMPARISON: | | | | | | 01/10/96. FINDINGS: A | | | | | | Silva gume has been | | | | | | placed at the | | | | | | thoracolumbar leveland | | | | | | is grossly unchanged in | | | | | | position compared to the | | | | | | prior study.Banks's | | | | | | angle measures 32 | | | | | | degrees, increased from | | | | | | the prior | | | | | | examinationwhere it | | | | | | measured 30 degrees. | | | | | | Measurements were | | | | | | taken from thesuperior | | | | | | portion of T-8 the | | | | | | inferior end plate of | | | | | | T-12. No | | | | | | paraspinalsoft tissue | | | | | | abnormalities are noted. | | | | | | The visualized | | | | | | portions of thelungs | | | | | | appear grossly normal. | | | | | | IMPRESSION: Interval | | | | | | increase in Banks's angle | | | | | | to 32 degrees in this | | | | | | patient withHarrington | | | | | | gume placement for | | | | | | levoscoliosis of the | | | | | | thoracolumbar spine,apex | | | | | | at T9-10. END OF | | | | | [...] | | + +---------+ + + | [facility] DEPARTMENT | | | | | RADIOLOGY | | | | + +---------+ + + documented in this encounter Visit Diagnoses Not on filedocumented in this encounter"
--- OUTSIDE RECORDS SUMMARY | ~2019-07-11 | XMS | Encounter Summary ---
Demographics + + + | Address | [address] | | | [place] [address] | + + + | Home Phone | | + + + | Preferred Language | Unknown | + + + | Marital Status | | + + + | Holiness Affiliation | Unknown | + + + [...] | Riley Chavez | ECON | [address] | | | | | [place] [address] | | + + + + + Care Team Providers + +------+ + | Care Cattle Sprayer Name | Role | Phone | + +------+ + PCP | Unavailable | + +------+ + Encounter Details +--------+ + + + + | Date | Type | Department | Care Team | Description | +--------+ + + + + | 07/19/ | Results | | Other, Faculty | | | 1996 | Only | | [phone] | | +--------+ + + + + [...]
--- OUTSIDE RECORDS SUMMARY | ~2019-07-11 | XMS | Encounter Summary ---
Demographics + + + | Address | [address] | | | [place] [address] | + + + | Home Phone | | + + + | Preferred Language | Unknown | + + + | Marital Status | | + + + | Islam Affiliation | Unknown | + + + | Race | White | + + + | Ethnic Group | Not or | + + + Author + + + | Author | [facility] | + + + | Organization | [facility] | + + + | Address | Unknown | + + + | Phone | Unavailable | + + + Support + + + + + | Name | Relationship | Address | Phone | + + + + + | Riley Chavze | ECON | [address] | | | | | [place] [address] | | + + + + + Care Team Providers + +------+ + | Care Compliance Administrator Name | Role | Phone | + +------+ + PCP | Unavailable | + +------+ + Encounter Details +--------+ + + + + | Date | Type | Department | Care Team | Description | +--------+ + + + + | 07/19/ | Office | [facility] | Report, Outpatient | Progress Note | | 1995 | Visit-Trans | & Rehabilitation | Consultation | | | | cribed | [address] | | | | | | Loop Mailcode: | | | | | | [id number] Physician's | | | | | | [place], | | | | | | [place] [address] | | | | | | [phone] | | | +--------+ + + + [...] as of this encounter Progress Notes Interface, Form Setter/Driver In - 09/29/2006 3:03 AM PDT CLINIC DATE: 07/19/95 CLINIC NAME: ORTHOPEDIC CLINIC DISCIPLINE: ORTHOPEDICS Yolette is 14+6, and seen in follow-up for scoliosis. Her original curvature corrected down to 15 degrees postoperatively, but now it is up to approximately 30 degrees, and I think some degree of correction was lost with the single gume instrumentation. Overall, she remains substantially improved. She does have some intermittent back pain that limits her from completing physical education in school. On examination she has pain in the lumbosacral spine region, but there is no clonus, hamstring tightness or a significant straight-leg raise. I think that she should continue to take the Advil or Aleve as needed, and I would like to see her back in six months with a repeat AP scoliosis radiograph. A lateral is not necessary in six months. If she has a significant episode of back pain I would like to see her before six months. I will see her as soon as it can be fit in. Arvin Hebert M.D. Manager Floor, Orthopedics SAHARA/moncho P cc: documented in this encounter Plan of Treatment Not on filedocumented as of this encounter Visit Diagnoses Not on filedocumented in this encounter"
--- OUTSIDE RECORDS SUMMARY | ~2019-07-11 | XMS | Encounter Summary ---
Demographics + + + | Address | [address] | | | [place] [address] | + + + | Home Phone | | + + + | Preferred Language | Unknown | + + + | Marital Status | | + + + | Congregation Affiliation | Unknown | + + + [...] | Riley Chavez | ECON | [address] | | | | | [place] [address] | | + + + + + Care Team Providers + +------+ + | Care Outboard System Operator Name | Role | Phone | + +------+ + PCP | Unavailable | + +------+ + Encounter Details +--------+ + + + + | Date | Type | Department | Care Team | Description | +--------+ + + + + | 07/ | Results | | Other, Faculty | | | 1998 | Only | | [phone] | | +--------+ + + + + [...] | X-RAY SCOLI SPINE | Routin | 10/01/1997 | | Results for this | | ENTIRE 36 1 VIEW | e | 1:30 PM | | procedure are in the | | | | PDT | | results section. | + +--------+ + + + documented in this encounter Results SCOLI SPINE ENTIRE 36 1 VIEW (10/01/1997 1:30 PM PDT) + + + + + + | Component | Value | Ref Range | Performed | Pathologist | | | | | At | Signature | + + + + + + | SCOLI SPINE | Radiologist 1: | | | | | ENTIRE 36 | RILEY VERONICA, | | | | | 1 VIEW | M.DCiara-Radiologist 2: | | | | | | ORALIA CURTISENTIRE | | | | | | SPINE, 1 VIEW: | | | | | | 10/01/97 at 1330 hrs | | | | | | Dictated: 10/02/97 | | | | | | CLINICAL HISTORY: | | | | | | Scoliosis. COMPARISON: | | | | | | 08/14/97. FINDINGS: | | | | | | There is levoscoliosis | | | | | | at the lower thoracic | | | | | | spine, maximalat T10-11. | | | | | | The Banks's angle has | | | | | | not significantly | | | | | | changed andmeasures | | | | | | about 31 degrees. A | | | | | | single gume is seen | | | | | | extending from [id number] | | | | | | L2 on the right. This | | | | | | is unchanged from the | | | | | | priorexamination. The | | | | | | regional skeleton is | | | | | | otherwise unremarkable. | | | | | | IMPRESSION: No | | | | | | significant interval | | | | | | change in the | | | | | | levoscoliosis of the | | | | | | lowerthoracic spine, | | | | | | status post fusion. END | | | | | | OF IMPRESSION: | | | | + [...] + +---------+ + + | [facility] DEPARTMENT OF | | | | | RADIOLOGY | | | | + +---------+ + + documented in this encounter Visit Diagnoses Not on filedocumented in this encounter"
--- OUTSIDE RECORDS SUMMARY | ~2019-07-11 | XMS | Encounter Summary ---
Demographics + + + | Address | [address] | | | [place] [address] | + + + | Home Phone | | + + + | Preferred Language | Unknown | + + + | Marital Status | | + + + | Temple Affiliation | Unknown | + + + [...] | Riley Chavez | ECON | [address] | | | | | [place] [address] | | + + + + + Care Team Providers + +------+ + | Care Insemination Worker Name | Role | Phone | + +------+ + PCP | Unavailable | + +------+ + Encounter Details +--------+ + + + + | Date | Type | Department | Care Team | Description | +--------+ + + + + | 04/12/ | Results | | Other, Faculty | | | 1994 | Only | | [phone] | | +--------+ + + + + [...]
--- OUTSIDE RECORDS SUMMARY | ~2019-07-11 | XMS | Encounter Summary ---
Demographics + + + | Address | [address] | | | [place] [address] | + + + | Home Phone [...] | | | | | [place] [address] | | + + + + + Care Team Providers + +------+ + | Care Psych Specialist Name | Role | Phone | [...] [id number] | | | | | | [place], [place] | | | | | | [address] | | | | | | [phone] | | | +--------+ + + + [...] | + + + + + | [facility] | [address] | [place] [address] | | | PATHOLOGY | [address] [...] | + + + + + | [facility] | [address] | [place] [address] | | | PATHOLOGY | [address] [...] | + + + + + | [facility] | [address] | [place] [address] | | | PATHOLOGY | [address] | | | + + + + + documented in this encounter Visit Diagnoses Not on filedocumented in this encounter"
--- OUTSIDE RECORDS SUMMARY | ~2019-07-11 | XMS | Clinical Summary ---
Demographics + + + | Address | [address] | | | [place] [address] | + + + | Home Phone [address] | | | | | [place] [address] | | + + + + + Care Team Providers + +------+ + | Care Lead Sewage Plant Operator Name | Role | Phone | + +------+ + | No Pcp Per Patient | PCP | Unavailable | + +------+ + Source Comments KAHLIL is fully live on both [facility] Ambulatory and [facility] InPatient.[facility] Allergies No Known Allergies Medications Not on [...]
--- OUTSIDE RECORDS SUMMARY | ~2019-07-11 | XMS | Encounter Summary ---
Demographics + + + | Address | [address] | | | [place] [address] | + + + | Home Phone [...] | Riley Chavez | ECON | [address] | | | | | [place] [address] | | + + + + + Care Team Providers + +------+ + | Care Certified Nurse Operating Room Name | Role | Phone | + +------+ + PCP | Unavailable | + +------+ + Encounter Details +--------+ + + + + | Date | Type | Department | Care Team | Description | +--------+ + + + + | 01/07/ | Results | | Other, Faculty | | | 1994 | Only | | [phone] | | +--------+ + + + + [...] SPINE, ENTIRE 36, 2 | Routin | 01/14/1995 | | Results for this | | VIEWS | e | 12:08 PM | | procedure are in the | | | | PDT | | results section. | + +--------+ + + + | SPINE THORACIC, 2 | Urgent | 01/10/1995 | | Results for this | | VIEWS, PORT. | | 4:00 PM | | procedure are in the | | | | PDT | | results section. | + +--------+ + + + | SPINE, THORACIC, 1 | Routin | 01/10/1995 | | Results for this | | VIEW, PORT. | e | 12:30 PM | | procedure are in the | | | | PDT | | results section. | + +--------+ + + + | SPINE, ENTIRE 36, 2 | Routin | 01/07/1995 | | Results for this | | VIEWS | e | 2:31 PM | | procedure are in the | | | | PDT | | results section. | + +--------+ + + + documented in this encounter Results SPINE, ENTIRE 36, 2 VIEWS (01/14/1995 12:08 PM PDT) + + + + + + | Component | Value | Ref Range | Performed | Pathologist | | | | | At | Signature | + + + + + + | SPINE, | Radiologist 1: | | | | | ENTIRE 36 , | RILEY VERONICA, | | | | | 2 VIEW | M.D.-Radiologist 2: | | | | | | RILEY RAMIRES, | | | | | | M.D.YOLETTE REDD | | | | | | | | | | | | | | | | | | 07-18-27 EXAM OF | | | | | | THE SPINE: 01/14/95 at | | | | | | 1208 hours. | | | | | | Dictated: 01/17/95 | | | | | | COMPARISON: Comparison | | | | | | is made to exams of the | | | | | | spine from 01/10/95 | | | | | | and01/07/95. FINDINGS: | | | | | | AP and lateral view of | | | | | | the spine from 01/14/95 | | | | | | are reviewed.There is | | | | | | scoliosis of the lower | | | | | | thoracic spine with | | | | | | convexity left.This | | | | | | scoliosis now measures | | | | | | approximately 12 degrees | | | | | | which is maximumat | | | | | | approximately T10-T11 | | | | | | vertebrae. The degree | | | | | | of scoliosis hasmarkedly | | | | | | decreased since the | | | | | | preoperative examination | | | | | | of 01/07/95.There is a | | | | | | spinal gume in place in | | | | | | the right posterior and | | | | | | appearsattached to the | | | | | | posterior elements of | | | | | | the T-7 through T-8, | | | | | | T-11through T-12, and | | | | | | L-1 through L-2 | | | | | | vertebrae. IMPRESSION: | | | | | | Markedly decreased | | | | | | degree of scoliosis | | | | | | since the | | | | | | preoperativeexamination. | | | | | | There is a spinal gume | | | | | | in place, extending | | | | | | fromapproximately the | | | | | | T-6 to the L-2 vertebrae | | | | | | posterior and on the | | | | | | right. END OF | | | | | [...] | | + +---------+ + + | [facility] DEPARTMENT OF | | | | | RADIOLOGY | | | | + +---------+ + + SPINE THORACIC, 2 VIEWS, PORT. (01/10/1995 4:00 PM PDT) + + + + + + | Component | Value | Ref Range | Performed | Pathologist | | | | | At | Signature | + + + + + + | SPINE | Radiologist 1: | | | | | THORACIC, 2 | RILEY VERONICA, | | | | | VIEWS, | M.D.-Radiologist 2: | | | | | PORT. | RILEY RAMIRES, | | | | | | YOLETTE MUSA | | | | | | | | | | | | | | | | | | 07-18-27 | | | | | | T-SPINE, TWO PORTABLE | | | | | | VIEWS: 01-10-95 at 1600 | | | | | | hrs DICTATED: | | | | | | 01-11-95 FINDINGS: | | | | | | There has been | | | | | | placement of a right | | | | | | spinal gume. There | | | | | | isscoliosis convexity | | | | | | right in the lower | | | | | | thoracic spine which | | | | | | hasdecreased to | | | | | | approximately 15 degrees | | | | | | as measured from the | | | | | | superiorend plate of L2 | | | | | | to the superior end | | | | | | plate of T8. | | | | | | IMPRESSION: Status post | | | | | | placement of spinal gume | | | | | | with decrease in the | | | | | | degree ofscoliosis, as | | | | | | detailed above. END OF | | | | | | IMPRESSION: | | | | + + + + + + + + | Specimen | + + | | + + + + + | Narrative | Performed At | + + + | Ordered by DYLLAN KANG M.D. | | + + + + +---------+ + + | Performing | Address | City/State/Zipcode | Phone Number | | Organization | | | | + +---------+ + + | [facility] DEPARTMENT OF | | | | | RADIOLOGY | | | | + +---------+ + + SPINE, THORACIC, 1 VIEW, PORT. (01/10/1995 12:30 PM PDT) + + + + + + | Component | Value | Ref Range | Performed | Pathologist | | | | | At | Signature | + + + + + + | SPINE, | Radiologist 1: | | | | | THORACIC, 1 | RILEY VERONICA, | | | | | VIEW, | M.DCiara-Radiologist 2: | | | | | PORT. | RILEY RAMIRES, | | | | | | YOLETTE MUSA | | | | | | | | | | | | | | | | | | 07-18-27 | | | | | | THORACIC SPINE, | | | | | | PORTABLE: 01/10/95 at | | | | | | 1230 hrs Dictated: | | | | | | 01/12/95 FINDINGS: A | | | | | | single intraoperative | | | | | | portable exam from | | | | | | 01/10/95 of thethoracic | | | | | | spine is reviewed. Two | | | | | | surgical clamps are | | | | | | seen, one withits tip at | | | | | | the level of the T6 | | | | | | vertebral body and the | | | | | | other clamp withits tip | | | | | | at the level of the T12 | | | | | | vertebral body. There | | | | | | is also adevice | | | | | | superimposed over most | | | | | | of the chest, obscuring | | | | | | bony detail. | | | | | | Anendotracheal tube is | | | | | | seen in place with its | | | | | | tip at the level of | | | | | | theT2-3 disc space. As | | | | | | previously noted, there | | | | | | is scoliosis of | | | | | | thethoracic spine. | | | | | | IMPRESSION: | | | | | | Intraoperative view of | | | | | | the thoracic spine, with | | | | | | instrumentation | | | | | | asdetailed above. END | | | | | | OF IMPRESSION: | | | | + + + + + + + + | Specimen | + + | | + + + + + | Narrative | Performed At | + + + | Ordered by GLENN ALVES | | + + + + +---------+ + + | Performing | Address | City/State/Zipcode | Phone Number | | Organization | | | | + +---------+ + + | [facility] DEPARTMENT OF | | | | | RADIOLOGY | | | | + +---------+ + + SPINE, ENTIRE 36, 2 VIEWS (01/07/1995 2:31 PM PDT) + + + + + + | Component | Value | Ref Range | Performed | Pathologist | | | | | At | Signature | + + + + + + | SPINE, | Radiologist 1: | | | | | ENTIRE 36 , | RILEY VERONICA, | | | | | 2 VIEW | M.D.-Radiologist 2: | | | | | | RILEY RAMIRES, | | | | | | M.D.YOLETTE REDD | | | | | | | | | | | | 01 | | | | | | 22 28 63 SPINE FILM: | | | | | | 01-07-95 | | | | | | | | | | | | Dictated: | | | | | | 01-11-95 Comparison is | | | | | | made with examination of | | | | | | the spine from 08-31-94. | | | | | | FINDINGS: Supine and | | | | | | standing views of the | | | | | | spine with the | | | | | | patientbending to the | | | | | | right and left from | | | | | | 01-07-95 were reviewed. | | | | | | There is scoliosis of | | | | | | the spine with convexity | | | | | | right in the | | | | | | lowerthoracic and upper | | | | | | lumbar spine, and | | | | | | convexity left in the | | | | | | lowerlumbar spine. | | | | | | With the patient | | | | | | supine bending to the | | | | | | right there is45 degrees | | | | | | of scoliosis measured | | | | | | using the inferior | | | | | | endplate of L1 andthe | | | | | | superior endplate of T8. | | | | | | The scoliosis reduces | | | | | | to 30 degrees whenthe | | | | | | patient bends to the | | | | | | left while supine. | | | | | | With the patient | | | | | | standingbending to the | | | | | | right there is 60 | | | | | | degrees of scoliosis | | | | | | measured usingthe | | | | | | inferior endplate of L2 | | | | | | and the superior | | | | | | endplate of T8. | | | | | | Thescoliosis reduces to | | | | | | 30 degrees when the | | | | | | patient bends to the | | | | | | leftwhile standing. In | | | | | | the previous films of | | | | | | 08-31-94, the patient was | | | | | | in the neutralposition, | | | | | | and the degree of | | | | | | scoliosis was | | | | | | approximately 35 degrees | | | | | | asmeasured from the | | | | | | inferior endplate of L2 | | | | | | and the inferior | | | | | | endplate ofT8. | | | | | | IMPRESSION: Scoliosis of | | | | | | the spine, as detailed | | | | | | above. The degree of | | | | | | scoliosis changes with | | | | | | the patient bending to | | | | | | the left orright, being | | | | | | the greatest with the | | | | | | patient bent to the | | | | | | right. END OF | | | | | [...] | | + +---------+ + + | [facility] DEPARTMENT OF | | | | | RADIOLOGY | | | | + +---------+ + + documented in this encounter Visit Diagnoses Not on filedocumented in this encounter"
--- OUTSIDE RECORDS SUMMARY | ~2019-07-11 | XMS | Encounter Summary ---
Demographics + + + | Address | [address] | | | [place] [address] | + + + | Home Phone | | + + + | Preferred Language | Unknown | + + + | Marital Status | | + + + | Alevism Affiliation | Unknown | + + + | Race | White | + + + | Ethnic Group | Not or | + + + Author + + + | Author | [facility] | + + + | Organization | [facility] | + + + | Address | Unknown | + + + | Phone | Unavailable | + + + Support + + + + + | Name | Relationship | Address | Phone | + + + + + | Riley Chavez | ECON | [address] | | | | | [place] [address] | | + + + + + Care Team Providers + +------+ + | Care Manager Med Surg Name | Role | Phone | + [...] | | | | | | [place], | | | | | | [place] [address] | | | | | | [phone] | | | +--------+ + + + [...] as of this encounter Progress Notes Interface, Tissue Rewinder In - 09/29/2006 3:03 AM PDT CLINIC [...] can be fit in. Arvin Hebert M.D. Gis Application Developer, Orthopedics SAHARA/moncho P cc: documented in this encounter Plan of Treatment Not on filedocumented as of this encounter Visit Diagnoses Not on filedocumented in this encounter"
--- OUTSIDE RECORDS SUMMARY | ~2019-07-11 | XMS | Encounter Summary ---
Demographics + + + | Address | [address] | | | [place] [address] | + + + | Home Phone | | + + + | Preferred Language | Unknown | + + + | Marital Status | | + + + | Quaker Affiliation | Unknown | + + + | Race | White | + + + | Ethnic Group | Not or | + + + Author + + + | Author | [facility] | + + + | Organization | [facility] | + + + | Address | Unknown | + + + | Phone | Unavailable | + + + Support + + + + + | Name | Relationship | Address | Phone | + + + + + | Riley Chavez | ECON | [address] | | | | | [place] [address] | | + + + + + Care Team Providers + +------+ + | Care Door Tender Name | Role | Phone | + +------+ + PCP | Unavailable | + +------+ + Encounter Details +--------+ + + + + | Date | Type | Department | Care Team | Description | +--------+ + + + + | 10/19/ | Office | UNKNOWN DEPARTMENT | Report, Outpatient | Progress Note | | 1994 | Visit-Trans | [address] | Consultation | | | | lily | [place] | | | | | | [place], [place] | | | | | | [address] | | | +--------+ + + + [...] as of this encounter Progress Notes Interface, Systems Development Consultant In - 10/15/2006 5:11 AM PDT CLINIC DATE: 10/19/94 CLINIC NAME: ORTHOPEDIC CLINIC DISCIPLINE: ORTHOPEDICS Yolette is 13 + 9 and seen in follow-up for her left thoracic scoliosis, measuring at 45 degrees. Her MRI scan is reviewed and reported as normal, and I agree normal to my eyes, without evidence of a syringomyelia or Arnold-Chiari malformation. I do not see any other abnormalities and they are not reported in the MRI report. Mom and child have discussed bracing versus surgical treatment and opted for surgery. A PARQ was held regarding the potential risks, benefits and alternatives, questions were answered and they desired to proceed. We planned for a Synthes instrumented surgery with iliac crest bone graft. No anterior surgery is planned. No postoperative brace is planned at this time. She would like to be operated the third or fourth week in November and we will try and arrange this. Arvin Hebert M.D. Commutator Assembler, Orthopedics EDU /moncho A cc: ILDA documented in this encounter Plan of Treatment Not on filedocumented as of this encounter Visit Diagnoses Not on filedocumented in this encounter"
--- OUTSIDE RECORDS SUMMARY | ~2019-07-11 | XMS | Encounter Summary ---
Demographics + + + | Address | [address] | | | [place] [address] | + + + | Home Phone | | + + + | Preferred Language | Unknown | + + + | Marital Status | | + + + | Latter-Day Affiliation | Unknown | + + + | Race | White | + + + | Ethnic Group | Not or | + + + Author + + + | Author | [facility] | + + + | Organization | [facility] | + + + | Address | Unknown | + + + | Phone | Unavailable | + + + Support + + + + + | Name | Relationship | Address | Phone | + + + + + | Riley Chavez | ECON | [address] | | | | | [place] [address] | | + + + + + Care Team Providers + +------+ + | Care Hydraulic Governor Assembler Name | Role | Phone | + [...] [place] | | | | | | [place], [place] | | | | | | [address] | | | +--------+ + + + [...] as of this encounter Progress Notes Interface, Warp Changer In - 10/18/2006 1:01 AM PDT CLINIC DATE: CLINIC NAME: ORTHOPEDIC - CLINIC DISCIPLINE: ORTHOPEDICS "Graham" Bryan is a 13+8 female seen for evaluation of left thoracic scoliosis documented by her chiropractic physician and her primary care doctor in [place], [place]. The original curvature was noted by an aunt guidance services coordinator. At age 13+8, she is about 1-2 [...] I reviewed this with both, and the Commercial Floor Covering Installer will be contacted to review this with them. I would like to see them back in 2-3 weeks so that we can look at the MRI scan again, discuss brace versus surgical treatment. Arvin Hebert M.D. Group Fitness Assistant Department Head, Orthopedics SAHARA:[email or web address] documented in this encounter Plan of Treatment Not on filedocumented as of this encounter Visit Diagnoses Not on filedocumented in this encounter
--- OUTSIDE RECORDS SUMMARY | ~2019-07-11 | XMS | Encounter Summary ---
Demographics + + + | Address | [address] | | | [place] [address] | + + + | Home Phone | | + + + | Preferred Language | Unknown | + + + | Marital Status | | + + + | Uatsdin Affiliation [...] | Riley Chavez | ECON | [address] | | | | | [place] [address] | | + + + + + Care Team Providers + +------+ + | Care Pump Servicer Helper Name | Role | Phone | + +------+ + PCP | Unavailable | + +------+ + Encounter Details +--------+ + + + + | Date | Type | Department | Care Team | Description | +--------+ + + + + | 07/ | Results | | Other, Faculty | | | 1998 | Only | | [phone] | | +--------+ + + + + [...] | | | | | extending from [id number] | | | | | | L2 [...] | | + +---------+ + + | [facility] DEPARTMENT OF | | | | | RADIOLOGY | | | | + +---------+ + + documented in this encounter Visit Diagnoses Not on filedocumented in this encounter"
--- OUTSIDE RECORDS SUMMARY | ~2019-07-11 | XMS | Encounter Summary ---
Demographics + + + | Address | [address] | | | [place] [address] | + + + | Home Phone | | + + + | Preferred Language | Unknown | + + + | Marital Status | | + + + | Scientologist Affiliation | Unknown | + + + [...] | + + + + + | iRley Chavez | ECON | [address] | | | | | [place] [address] | | + + + + + Care Team Providers + +------+ + | Care Correspondence Clerk Name | Role | Phone | + +------+ + PCP | Unavailable | + +------+ + Encounter Details +--------+ + + + + | Date | Type | Department | Care Team | Description | +--------+ + + + + | 01/07/ | Results | | Other, Faculty | | | 1994 | Only | | [phone] | | +--------+ + + + + [...]
--- OUTSIDE RECORDS SUMMARY | ~2019-07-11 | XMS | Encounter Summary ---
Demographics + + + | Address | [address] | | | [place] [address] | + + + | Home Phone | | + + + | Preferred Language | Unknown | + + + | Marital Status | | + + + | Latter-Day Affiliation | Unknown | + + + | Race | White | + + + | Ethnic Group | Not or | + + + Author + + + | Author | [facility] | + + + | Organization | [facility] | + + + | Address | Unknown | + + + | Phone | Unavailable | + + + Support + + + + + | Name | Relationship | Address | Phone | + + + + + | Riley Chavez | ECON | [address] | | | | | [place] [address] | | + + + + + Care Team Providers + +------+ + | Care Substation Operator Helper Generation Name | Role | Phone | + [...] [place] | | | | | | [place], [place] | | | | | | [address] | | | +--------+ + + + [...] as of this encounter Progress Notes Interface, Formula Mixer In - 10/15/2006 5:11 AM PDT CLINIC [...] try and arrange this. Arvin Hebert M.D. Type Disk Quality Control Supervisor, Orthopedics EDU /moncho A cc: ILDA documented in this encounter Plan of Treatment Not on filedocumented as of this encounter Visit Diagnoses Not on filedocumented in this encounter"
--- OUTSIDE RECORDS SUMMARY | ~2019-07-11 | XMS | Encounter Summary ---
Demographics + + + | Address | [address] | | | [place] [address] | + + + | Home Phone | | + + + | Preferred Language | Unknown | + + + | Marital Status | | + + + | Faith Affiliation | Unknown | + + + [...] | Riley Chavez | ECON | [address] | | | | | [place] [address] | | + + + + + Care Team Providers + +------+ + | Care Ancillary Services Manager Therapy Name | Role | Phone | + +------+ + PCP | Unavailable | + +------+ + Encounter Details +--------+ + + + + | Date | Type | Department | Care Team | Description | +--------+ + + + + | 02/18/ | Results | | Other, Faculty | | | 1996 | Only | | [phone] | | +--------+ + + + + [...] | | + +---------+ + + | [facility] DEPARTMENT | | | | | RADIOLOGY | | | | + +---------+ + + documented in this encounter Visit Diagnoses Not on filedocumented in this encounter"
--- OUTSIDE RECORDS SUMMARY | ~2019-07-11 | XMS | Encounter Summary ---
Demographics + + + | Address | [address] | | | [place] [address] | + + + | Home Phone [...] + + + | Author | [facility] | + + + | Organization | [facility] | + + + | Address | Unknown | + + + | Phone | Unavailable | + + + Support + + + + + | Name | Relationship | Address | Phone | + + + + + | Riley Chavez | ECON | [address] | | | | | [place] [address] | | + + + + + Care Team Providers + +------+ + | Care Liquified Natural Gas Specialist Name | Role | Phone | [...] Consultation | | | | cribed | [address] | | | | | | Loop Mailcode: | | | | | | [id number] Physician's | | | | | | [place], | | | | | | [place] [address] | | | | | | [phone] | | | +--------+ + + + [...] as of this encounter Progress Notes Interface, Information Technology Architect In - 10/05/2006 3:00 AM PDT CLINIC [...] they have any problems. Arvin Hebert M.D. Reviewer Sales, Orthopedics [email or web address] documented in this encounter Plan of Treatment Not on filedocumented as of this encounter Visit Diagnoses Not on filedocumented in this encounter"
--- OUTSIDE RECORDS SUMMARY | ~2019-07-11 | XMS | Encounter Summary ---
Demographics + + + | Address | [address] | | | [place] [address] | + + + | Home Phone | | + + + | Preferred Language | Unknown | + + + | Marital Status | | + + + | Religion Affiliation | Unknown | + + + | Race | White | + + + | Ethnic Group | Not or | + + + Author + + + | Author | [facility] | + + + | Organization | [facility] | + + + | Address | Unknown | + + + | Phone | Unavailable | + + + Support + + + + + | Name | Relationship | Address | Phone | + + + + + | Riley Chavez | ECON | [address] | | | | | [place] [address] | | + + + + + Care Team Providers + +------+ + | Care Solar Panel Technician Name | Role | Phone | [...] | | | | | | [place], | | | | | | [place] [address] | | | | | | [phone] | | | +--------+ + + + [...] as of this encounter Progress Notes Interface, Harbor Boat Pilot In - 09/01/2006 3:09 AM PST CLINIC [...] an issue for her. Arvin Hebert M.D. Supply Chain Specialist, Orthopedics [email or web address] documented in this encounter Plan of Treatment Not on filedocumented as of this encounter Visit Diagnoses Not on filedocumented in this encounter
--- OUTSIDE RECORDS SUMMARY | ~2019-07-11 | XMS | Encounter Summary ---
Demographics + + + | Address | [address] | | | [place] [address] | + + + | Home Phone [...] | Riley Chavez | ECON | [address] | | | | | [place] [address] | | + + + + + Care Team Providers + +------+ + | Care Engineer Third Assistant Name | Role | Phone | + +------+ + PCP | Unavailable | + +------+ + Encounter Details +--------+ + + + + | Date | Type | Department | Care Team | Description | +--------+ + + + + | 01/09/ | Results | | Other, Faculty | | | 1996 | Only | | [phone] | | +--------+ + + + + [...]
--- OUTSIDE RECORDS SUMMARY | ~2019-07-11 | XMS | Encounter Summary ---
Demographics + + + | Address | [address] | | | [place] [address] | + + + | Home Phone | | + + + | Preferred Language | Unknown | + + + | Marital Status | | + + + | Jehovah'S Witness Affiliation | Unknown | + + + | Race | White | + + + | Ethnic Group | Not or | + + + Author + + + | Author | [facility] | + + + | Organization | [facility] | + + + | Address | Unknown | + + + | Phone | Unavailable | + + + Support + + + + + | Name | Relationship | Address | Phone | + + + + + | Riley Chavez | ECON | [address] | | | | | [place] [address] | | + + + + + Care Team Providers + +------+ + | Care Table Games Supervisor Name | Role | Phone | [...] | | | | | | [place], | | | | | | [place] [address] | | | | | | [phone] | | | +--------+ + + + [...] as of this encounter Progress Notes Interface, Electric Meter Tester Helper In - 09/18/2006 3:03 AM PDT CLINIC [...] repeat AP scoliosis radiograph. Arvin Hebert M.D. Affirmative Action Specialist, Orthopedics SAHARA/dawood A cc: documented in this encounter Plan of Treatment Not on filedocumented as of this encounter Visit Diagnoses Not on filedocumented in this encounter"
[2019-07-11] MEDS ORDERED: KEFLEX500 MG PO (18:12)
== END 2019-07-11 18:23 | disposition home or self-care (01) ==
LOC: ED 14:37
DX: N30.90 Cystitis, unspecified without hematuria (principal); F32.9 Major depressive disorder, single episode, unspecified; F41.9 Anxiety disorder, unspecified; K21.9 Gastro-esophageal reflux disease without esophagitis; J45.909 Unspecified asthma, uncomplicated; F17.200 Nicotine dependence, unspecified, uncomplicated; Z91.041 Radiographic dye allergy status; Z88.2 Allergy status to sulfonamides; Z88.8 Allergy status to other drugs, medicaments and biological substances; Z79.899 Other long term (current) drug therapy; Z79.51 Long term (current) use of inhaled steroids
CPT/HCPCS: 81001; 99283; A9270

== ENCOUNTER 2019-07-20 06:04 | Emergency (ER) | payer OTHER ==
[~2019-07-20] VITALS: Ht 152.4 cm; Wt 70.8 kg
[~2019-07-20 06:04] MED LIST changes: +KEFLEX500 MG PO
[2019-07-20] MEDS ORDERED: CARBAMAZEPINE200 M2 PO (06:11)
== END 2019-07-20 06:55 | disposition home or self-care (01) ==
LOC: ED 06:04
DX: J45.901 Unspecified asthma with (acute) exacerbation (principal); F32.9 Major depressive disorder, single episode, unspecified; F41.9 Anxiety disorder, unspecified; K21.9 Gastro-esophageal reflux disease without esophagitis; F17.200 Nicotine dependence, unspecified, uncomplicated; Z88.2 Allergy status to sulfonamides; Z88.8 Allergy status to other drugs, medicaments and biological substances; Z91.041 Radiographic dye allergy status; Z79.899 Other long term (current) drug therapy
CPT/HCPCS: 71046; 94640; 96374; 99285-25; J2930

== ENCOUNTER 2022-08-30 00:43 | Emergency (ER) | payer OTHER ==
[~2022-08-30] VITALS: Ht 152.4 cm; Wt 55.6 kg
[~2022-08-30 00:43] MED LIST changes: +CARBAMAZEPINE200 M2 PO
== END 2022-08-30 01:14 | disposition home or self-care (01) ==
LOC: ED 00:43
DX: Z76.0 Encounter for issue of repeat prescription (principal); J45.909 Unspecified asthma, uncomplicated; K21.9 Gastro-esophageal reflux disease without esophagitis; F17.210 Nicotine dependence, cigarettes, uncomplicated; Z91.041 Radiographic dye allergy status; Z88.2 Allergy status to sulfonamides; Z79.899 Other long term (current) drug therapy
CPT/HCPCS: 99281